=== PATIENT | female | born 1955 | race Caucasian/White ===

== ENCOUNTER 2022-01-22 23:07 | Emergency (ER) | payer MEDICARE, OTHER, SELFPAY ==
[2022-01-22 23:08] VITALS: BP 160/90; PULSE 105; RESP 18; TEMP 36.6; O2SAT 99; BMI 22.2
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
--- NOTE | 2022-01-22 23:48 | CT_ITS ---
INDICATION: injury EXAMINATION: CT CERVICAL SPINE - CT Spine Cervical W/O Contrast Injection TECHNIQUE: Helically acquired images were obtained of the cervical spine. 2D reformatted images were reviewed. A radiation dose optimization technique was used for this scan. IV Contrast dosage and agent: None. COMPARISON: None. FINDINGS: VERTEBRAE: No fracture or acute compression deformity. No discrete lytic or blastic abnormality. Straightening of the normal cervical lordosis. Normal craniocervical junction and cervicothoracic junction. DISCS and SPINAL CANAL: Mid cervical disc height loss and small posterior disc osteophyte complex C4-C5 and C5-C6 with mild spinal canal stenosis and mild right greater than left neural foraminal narrowing. No critical stenosis. NECK SOFT TISSUES: No prevertebral soft tissue swelling. There is no cervical adenopathy. LUNG APICES: Clear. CT/Spine Cervical without Contras IMPRESSION: No evidence of acute cervical spinal fracture or spondylolisthesis. Mild mid cervical spondylosis. Electronically Signed: Tyron Zamora MD at 0:40 EST ,
--- NOTE | 2022-01-22 23:48 | CT_ITS ---
We are attempting to reach an attending provider to discuss findings. An addendum with communication details will be sent when the communication is complete. INDICATION: injury EXAMINATION: CT BRAIN - CT Head or Brain W/O Contrast Injection TECHNIQUE: Multiple axial images were obtained of the head without intravenous contrast. A radiation dose optimization technique was used for this scan. IV Contrast dosage and agent: None. COMPARISON: None FINDINGS: BRAIN PARENCHYMA: Trace subarachnoid hemorrhage versus parenchymal lesion along the left inferior parietal lobe, axial image 25 sagittal image 58 and left cerebellum sagittal image 43. No vasogenic edema. No evidence of intracranial mass or mass effect. Landry-white matter differentiation is preserved. Minimal carotid atherosclerosis. CSF SPACES: Cerebral volume appropriate for age. No hydrocephalus. Basal cisterns are patent. CALVARIUM, SKULL BASE, PARANASAL SINUSES AND MASTOID AIR CELLS:No acute osseous finding. Mild scattered paransal sinus mucoperisteal thickening. Mastoid air cells are clear. ORBITS: Both globes, extraocular muscles, optic nerves and retrobulbar fat appear unremarkable. ASPECTS Score for Acute Strokes: 10 CT/Brain/Head without Contrast IMPRESSION: Small foci of intracranial hemorrhage along the left inferior parietal lobe and left cerebellum, likely subarachnoid with small parenchymal contusion not excluded Electronically Signed: Tyron Zamora MD at 0:31 EST ,
--- NOTE | 2022-01-22 23:48 | CT_ITS ---
INDICATION: injury EXAMINATION: CT FACIAL BONES - CT Maxillofacial W/O Contrast Injection TECHNIQUE: Helically acquired images were obtained of the facial bones. A radiation dose optimization technique was used for this scan. IV Contrast dosage and agent: None. COMPARISON: CT head on same day. FINDINGS: SOFT TISSUES: No focal subcutaneous swelling. No discrete fluid collections. Small foci of hemorrhage likely subarachnoid along the left inferior parietal lobe and left cerebellum, better assessed on CT head. VISUALIZED PARANASAL SINUSES: Mild scattered mucoperiosteal thickening. Congenital osseous left nasal septal deviation. Paradoxical curvature of the anterior middle nasal turbinate. VISUALIZED MASTOID AIR CELLS: Clear. FACIAL BONES, MANDIBLE AND TMJs: No displaced facial bone fracture. No lytic or blastic abnormality. VISUALIZED DENTITION: No periodontal osseous erosion. ORBITAL CONTENTS: Both globes, extraocular muscles and retrobulbar fat appear unremarkable. CT/Sinus/Facial Bone IMPRESSION: Mild scattered sinus disease. No evidence of osseous injury. Electronically Signed: Tyron Zamora MD at 0:46 EST ,
[2022-01-23 01:15] LABS: Anion Gap 7 (5-15); BUN 15 mg/dL (7-18); BUN/Creat Ratio 21.8 RATIO (10-20); Calcium,Total 9.3 mg/dL (8.5-10.1); Chloride 107 mmol/L (98-107); Creatinine, Serum 0.69 mg/dL (0.55-1.02); EST Glomerular Filtration Rate 91 mL/min (>60); Est Glom Filt Rate - Afr Amer 110 mL/min (>60); Glucose 103 mg/dL (74-106); Sodium Level 138 mmol/L (136-145)
[2022-01-23 01:22] LABS: Absolute Neutrophil Count 9.6 X10^3/uL (2.0-7.7); Basophil# 0.07 X10^3/uL; Basophil% 0.6 % (0-1); Eosinophil# 0.06 X10^3/uL; Eosinophils% 0.5 % (0-5); Hematocrit 42.6 % (37-47); Hemoglobin 14.5 g/dL (12.0-15.0); Lymphocyte % 7.2 % (19-41); Mean Corpuscular Hgb 30.4 pg (27.0-32.0); Mean Corpuscular Volume 89.3 fL (81-99); Mean Platelet Vol. 10.3 fl (6.2-12.0); Monocyte# 0.41 X10^3/uL; Monocyte% 3.7 % (0-10); NRBC Flagged by Analyzer 0 % (0-5); Neutrophil # 9.55 X10^3/uL (2.7-7.7); Neutrophil % 85.8 % (47-70); Platelet Count 300 K/mm3 (150-450); RBC Distribution Width CV 12.2 % (11.6-14.6); RBC Distribution Width SD 40.1 fl (35.1-43.9); Red Blood Count 4.77 M/mm3 (4.2-5.4); White Blood Count 11.1 K/mm3 (4.4-11.0)
--- NOTE | 2022-01-23 01:22 | ED.RN ---
PATIENT ACCEPTED FOR TRANSFER TO [facility] [id number]
[2022-01-23 01:24] LABS: Prothrombin Time (Protime)PT. 13.3 SECONDS (11.7-14.9)
[2022-01-23 01:25] LABS: Partial Thromboplast Time 29.9 Seconds (24.1-36.2)
[2022-01-23 01:32] VITALS: BP 151/90; PULSE 100; RESP 16; O2SAT 97
--- NOTE | 2022-01-23 01:41 | NURSING ---
due to pt blood pressure recheck 150/90 Doctor gave verbal order for 10mg trandate IV instead of full 20mg originally ordered.
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
[2022-01-23] MEDS: Labetalol (Prefilled) 20 MG/4 ML IV (02:04)
--- NOTE | 2022-01-23 02:05 | NURSING ---
Verbal order from Doctor to give other 10mg IV Trandate.
[2022-01-23 02:06] VITALS: BP 147/87; PULSE 93; RESP 16; O2SAT 98
[2022-01-23 02:26] VITALS: BP 143/80; PULSE 99; RESP 19; O2SAT 96
== END 2022-01-23 02:51 | disposition short-term general hospital (02) ==
PROVIDERS: Emergency Provider Emergency Medicine; Visit Provider Emergency Medicine
DX: S06.37AA Contusion, laceration, and hemorrhage of cerebellum with loss of consciousness status unknown, initial encounter (principal); F10.129 Alcohol abuse with intoxication, unspecified; Z85.3 Personal history of malignant neoplasm of breast; W19.XXXA Unspecified fall, initial encounter; F41.9 Anxiety disorder, unspecified
CPT/HCPCS: 70450; 70486; 72125; 80048; 82077; 85025; 85610; 85730; 96374; 99285; A4216

== ENCOUNTER → 2022-07-20 | Outpatient (CLI) | payer MEDICARE, OTHER, SELFPAY ==
--- NOTE | 2022-07-20 14:01 | RAD_ITS ---
INDICATION: INJURY fell several days ago, pain mid to proximal forearm EXAMINATION/TECHNIQUE: X-RAY - LEFT XR Elbow Min 3 Views COMPARISON: None. FINDINGS: BONES: No fracture demonstrated. JOINTS: No dislocation. SOFT TISSUES: Unremarkable. RAD/Elbow min 3 Views IMPRESSION: No evidence of fracture. Electronically Signed: Ermelinda Majano MD at 23:23 EDT ,
--- NOTE | 2022-07-20 14:01 | RAD_ITS ---
EXAM: XR LEFT FOREARM, 2 VIEWS CLINICAL INDICATION: Fall on left arm TECHNIQUE: Frontal and lateral views of the left forearm. COMPARISON: No relevant prior studies available. FINDINGS: BONES/JOINTS: Unremarkable. No acute fracture. No dislocation. SOFT TISSUES: Mild dorsal soft tissue swelling at the level of the proximal-mid forearm. No underlying fracture. Wrist and elbow appear unremarkable on the views provided. RAD/Forearm 2 Views IMPRESSION: Mild soft tissue swelling. Electronically Signed: Indy Esparza MD at 8:16 EDT ,
== END | disposition home or self-care (01) ==
LOC: MTRAD 14:00
PROVIDERS: PCP Family Medicine; Referring Provider Family Medicine; Visit Provider Family Medicine
DX: S59.902A Unspecified injury of left elbow, initial encounter (principal); M79.632 Pain in left forearm
CPT/HCPCS: 73080; 73090

== ENCOUNTER → 2022-12-27 | Outpatient (CLI) | payer MEDICARE, OTHER, SELFPAY ==
[2022-12-27 15:42] LABS: ALB/GLOB Ratio 1.1 RATIO (0.9-2.4); AST(SGOT) 21 U/L (15-37); Alanine Aminotransfer ALT/SGPT 18 U/L (13-56); Albumin, Serum 3.7 g/dL (3.2-5.0); Alkaline Phosphatase 68 U/L (45-117); Anion Gap 6 (5-15); BUN 16 mg/dL (7-18); BUN/Creat Ratio 21.4 RATIO (10-20); Calcium,Total 8.9 mg/dL (8.5-10.1); Chloride 107 mmol/L (98-107); Cholesterol 186 mg/dL (200); Creatinine, Serum 0.75 mg/dL (0.55-1.02); EST Glomerular Filtration Rate 82 mL/min (>60); Est Glom Filt Rate - Afr Amer 100 mL/min (>60); Globulin 3.5 g/dL (2.2-4.2); Glucose 87 mg/dL (74-106); High Density Lipoprotein 55 mg/dL; Potassium 3.8 mmol/L (3.5-5.1); Protein, Total 7.2 g/dL (6.4-8.2); Sodium Level 140 mmol/L (136-145); Thyroid Stim Hormone (TSH) 1.62 uIU/mL (0.358-3.74); Triglycerides 75 mg/dL; Very Low Density Lipoprotein 15 mg/dL (5-40)
== END | disposition home or self-care (01) ==
PROVIDERS: PCP Family Medicine; Referring Provider Family Medicine; Visit Provider Family Medicine
DX: Z00.00 Encounter for general adult medical examination without abnormal findings (principal); Z13.220 Encounter for screening for lipoid disorders; Z85.3 Personal history of malignant neoplasm of breast; Z80.8 Family history of malignant neoplasm of other organs or systems
CPT/HCPCS: 36415; 80053; 80061; 84443

== ENCOUNTER → 2024-01-30 | Outpatient (CLI) | payer MEDICARE, OTHER, SELFPAY ==
[2024-01-30 17:53] LABS: Absolute Lymphocyte Count 1.27 X10^3/uL (0.83-4.51); Absolute Neutrophil Count 4.5 X10^3/uL (2.0-7.7); Basophil# 0.06 X10^3/uL; Basophil% 0.9 % (0-1); Eosinophils% 3.1 % (0-5); Hematocrit 41.2 % (37-47); Hemoglobin 13.6 g/dL (12.0-15.0); Lymphocyte # 1.27 X10^3/ul (0.83-4.51); Mean Corpuscular Hgb 29.8 pg (27.0-32.0); Mean Corpuscular Volume 90.4 fL (81-99); Mean Platelet Vol. 10.8 fl (6.2-12.0); Monocyte# 0.29 X10^3/uL; Monocyte% 4.6 % (0-10); NRBC Flagged by Analyzer 0 % (0-5); Neutrophil # 4.53 X10^3/uL (2.7-7.7); Neutrophil % 71.2 % (47-70); Platelet Count 274 K/mm3 (150-450); RBC Distribution Width CV 12.6 % (11.6-14.6); RBC Distribution Width SD 41.1 fl (35.1-43.9); Red Blood Count 4.56 M/mm3 (4.2-5.4); White Blood Count 6.4 K/mm3 (4.4-11.0)
[2024-01-30 18:28] LABS: ALB/GLOB Ratio 1.1 RATIO (0.9-2.4); AST(SGOT) 13 U/L (15-37); Alanine Aminotransfer ALT/SGPT 18 U/L (13-56); Albumin, Serum 3.9 g/dL (3.2-5.0); Alkaline Phosphatase 72 U/L (45-117); Anion Gap 5 (5-15); BUN 17 mg/dL (7-18); BUN/Creat Ratio 23.5 RATIO (10-20); Calcium,Total 9.3 mg/dL (8.5-10.1); Chloride 107 mmol/L (98-107); Creatinine, Serum 0.72 mg/dL (0.55-1.02); EST Glomerular Filtration Rate 85 mL/min (>60); Est Glom Filt Rate - Afr Amer 103 mL/min (>60); Globulin 3.5 g/dL (2.2-4.2); Glucose 93 mg/dL (74-106); Potassium 3.7 mmol/L (3.5-5.1); Protein, Total 7.4 g/dL (6.4-8.2); Sodium Level 140 mmol/L (136-145)
[2024-02-01 00:58] LABS: Vitamin D,25 Hydroxy 30.4 ng/mL
== END | disposition home or self-care (01) ==
LOC: MFPLAB 16:38
PROVIDERS: PCP Family Medicine; Referring Provider Family Medicine; Visit Provider Family Medicine
DX: R53.83 Other fatigue (principal)
CPT/HCPCS: 36415; 80053; 82306; 84443; 85025

== ENCOUNTER 2024-03-12 13:28 | Outpatient (CLI) | payer MEDICARE, OTHER, SELFPAY ==
--- NOTE | 2024-03-12 13:34 | CT_ITS ---
EXAM: CT coronary calcium scoring. CLINICAL HISTORY: Hypertension. COMPARISON: None. TECHNIQUE: CT coronary calcium scoring. FINDINGS: Bilateral breast prostheses are seen, with chronic appearing rupture of the left prosthesis. Limited imaging of the lungs shows no acute process. CALCIUM SCORING RESULTS (Volume / Agatston): LEFT MAIN: 0 / 0 RCA: 0 / 0 LAD: 49.44 / 57.27 CIRCUMFLEX: 0 / 0 PDA: 0 / 0 Total: 49.44 / 57.27 Patient Age: 68 Percentile: 57 CA Threshold: 130HU Reference: Jersey Pathak al., [facility], 2001 ([facility], [place], [id number] patients) CT/Limited Chest CT Cardiac Only IMPRESSION: Coronary artery calcium score of 57.27. Age adjusted percentile of 57%. Reading Location: [id number]
--- NOTE | 2024-03-12 16:39 | CA.SCORE ---
Calcium Scoring Date of Study:: 03/12/24 Coronary Calcium Scoring: High-resolution Computed Tomographic imaging of the chest was performed on [03/12/23 ], with particular attention paid to the coronary arteries. Images from the examination were analyzed for the presence and extent of coronary artery calcification , using coronary calcium quantification software. The patient tolerated the procedure well and there were no complications. The results of the coronary calcification analysis are provided below. Findings Coronary Artery Left Main (LM): 0 Left Anterior Descending (LAD): 62 Left Circumflex (LCX): 0 Right Coronary Artery (RCA): 0 Total Agatston Score: 62 Percentile Rankin to 75% Calcium Scoring Interpretation: Different methods to categorize the overall amount of coronary plaque. Overall amount CAC SIS Visual of coronary plaque P1 Mild -100 <2 1-2 vessels with mild amount of plaque P2 Moderate 101-300 3-4 1-2 vessels with moderate amount, 3 vessels with mild amount of plaque P3 Severe 301-999 5-7 3 vessels with moderate amount, 1 vessel with severe amount of plaque P4 Extensive >1000 >8 2-3 vessels with severe amount of plaque Calcium Score: Mild: 1-2 vessels w/mild amount of plaque Conclusion: Mild single-vessel atherosclerotic plaquing only noted.
== END 2024-03-12 23:59 | disposition home or self-care (01) ==
PROVIDERS: PCP Family Medicine; Referring Provider Family Medicine; Visit Provider Family Medicine
DX: Z00.00 Encounter for general adult medical examination without abnormal findings (principal)
CPT/HCPCS: 75571; 76380

== ENCOUNTER → 2024-03-18 | Outpatient (CLI) | payer MEDICARE, OTHER, SELFPAY ==
[2024-03-22 11:08] LABS: HPV APTIMA, High Risk Negative (Negative)
== END | disposition home or self-care (01) ==
LOC: LABSPEC 15:01
PROVIDERS: PCP Family Medicine; Referring Provider Obstetrics & Gynecology; Visit Provider Obstetrics & Gynecology
DX: Z12.4 Encounter for screening for malignant neoplasm of cervix (principal)
CPT/HCPCS: 87624; 88175; G0145

== ENCOUNTER → 2024-03-25 | Outpatient (CLI) | payer MEDICARE, OTHER, SELFPAY ==
--- NOTE | 2024-03-25 14:17 | US_ITS ---
PROCEDURE: PELVIC W/ TRANSVAGINAL REASON FOR EXAM: Uterine prolapse. TECHNIQUE: Transabdominal and transvaginal pelvic ultrasound COMPARISON: None. FINDINGS: Measurements: Uterus: 8.3 cm x 5.3 cm x 2.9 cm. Endometrial Thickness: 9 mm. This is thickened. Right Ovary: Nonvisualized. Left Ovary: Nonvisualized. TRANSABDOMINAL: Uterus: Normal size, myometrial echotexture, and contour. Endometrium: Endometrium is thickened at 9 mm. No large pelvic mass identified. Transvaginal sonography was performed to better visualize the endometrium and to look for the nonvisualized ovary or ovaries. TRANSVAGINAL: Uterus: Anteverted. Normal contour and myometrial echotexture. Endometrium: Endometrial thickening at 9 mm. Cul-de-sac: No free intraperitoneal fluid identified. No tenderness. US/Pelvic w/ Transvaginal IMPRESSION: Endometrium is thickened. Reading Location: [id number]
== END | disposition home or self-care (01) ==
LOC: US 14:15
PROVIDERS: PCP Family Medicine; Referring Provider Obstetrics & Gynecology; Visit Provider Obstetrics & Gynecology
DX: N81.4 Uterovaginal prolapse, unspecified (principal)
CPT/HCPCS: 76830; 76856

== ENCOUNTER 2024-08-07 15:50 | Outpatient (CLI) | payer MEDICARE, OTHER, SELFPAY ==
[2024-08-09 16:08] LABS: Lyme Scn Total Ab w/Rflx Negative (Negative)
== END 2024-08-07 23:59 | disposition home or self-care (01) ==
LOC: MFPLAB 15:53
PROVIDERS: PCP Family Medicine; Referring Provider Family Medicine; Visit Provider Family Medicine
DX: Z00.00 Encounter for general adult medical examination without abnormal findings (principal); W57.XXXA Bitten or stung by nonvenomous insect and other nonvenomous arthropods, initial encounter
CPT/HCPCS: 36415; 86618

== ENCOUNTER 2025-02-10 09:49 | Outpatient (CLI) | payer MEDICARE, OTHER, SELFPAY ==
--- OUTSIDE RECORDS SUMMARY | 2025-02-10 10:36 | XMS RPT_ITS | CCD ---
Author Organization [facility] Inform ion Partnership [facility] Care Team Providers Care Director Of Land Acquisition Name Role Phone LETTY, DR HERO Gentile Admitting Unavaila ble LETTY, DR HERO Gentile Primary Care Unavaila ble LETTY, DR HERO Gentile Attending Unavaila ble LETTY, DR HERO Gentile Primary Care Unavaila ble LETTY, DR HERO Gentile Attending Unavaila ble LETTY, DR HERO Gentile Admitting Unavaila ble LETTY, DR HERO Gentile Primary Care Unavaila ble LETTY, DR HERO Gentile Attending Unavaila ble LETTY, DR HERO Gentile Admitting Unavaila ble LETTY, DR HERO Gentile Primary Care Unavaila ble LETTY, DR HERO Gentile Attending Unavaila ble LETTY, DR HERO Gentile Admitting Unavaila ble BLAKE DOMINGUEZ DO Primary Care Physician [phone] Blake Dominguez DO Primary Care Provider [phone] JAZMIN TUTTLE Attending Unavailable BLAKE DOMINGUEZ Primary Care Unavailable SAMANTA, JAZMIN Referring Unavailable BLAKE DOMINGUEZ Primary Care Unavailable JAZMIN TUTTLE Attending Unavailable JAZMIN TUTTLE Referring Unavailable BLAKE DOMINGUEZ Primary Care Unavailable BLAKE DOMINGUEZ Primary Care Unavailable BLAKE DOMINGUEZ Primary Care Unavailable HERO BUSCH Admitting Unavailable HERO BUSCH Attending Unavailable CARLI PEREZ Consulting Unavailable SHAWN SUTTON Attending Unavailable BLAKE DOMINGUEZ Primary Care Unavailable CARLI PEREZ Referring Unavailable BLAKE DOMINGUEZ Primary Care Unavailable BLAKE DOMINGUEZ DO Primary Care Physician NICOLE QUINN MD Attending Unavailable BLAKE DOMINGUEZ DO Primary Care Unavailable Amrik Mccoy MD Primary Care Provider Amrik Mccoy MD Attending Provider [phone] Amrik Mccoy MD Referring Provider Chiara Mensah, Marion Referring Unavailabl e Darius, Chalon Primary Care Unavailable Vande Velde, Marion Attending Unavailabl e Darius, Chalon Primary Care Unavailable Darius, Amrik Attending Unavailable Darius, Chalon Referring Unavailable Darius, Chalon Referring Unavailable Vande Velde, Marion Attending Unavailabl e Darius, Chalon Primary Care Unavailable Darius, Chalon Referring Unavailable Alecia, Zechariah Attending Unavailable Darius, Chalon Primary Care Unavailable Darius, Chalon Consulting Unavailable Darius, Chalon Referring Unavailable Darius, Chalon Primary Care Unavailable Darius, Yulianaon Attending Unavailable Darius, Chalon Primary Care Unavailable Barkman, Rosalinda Attending Unavailable Darius, Chalon Referring Unavailable Darius, Chalon Referring Unavailable Darius, Chalon Primary Care Unavailable Darius, Yulianaon Attending Unavailable Vande Velde, Marion Attending Unavailabl e Vande Velde, Marion Referring Unavailabl e Darius, Chalon Primary Care Unavailable Allergies Allergy Classification Reported Allergen(s) Allergy Type Date of Onset Reaction(s) Facility (9 sources) Seasonal allergy; Translations: [SEASONAL ALLERGIES] Allergy to substance 4 Other: See Comments [facility] Medications Current Medications Medication Drug Class(es) Dates Sig (Normalized) Sig (Original) cholecalciferol 0.125 mg oral capsule (9 sources) Vitamin D Start: 03-12-2024 take 1 capsule by mouth once daily Cholecalciferol (Vitamin D3) 125 mcg (5,000 unit) capsule Active 125 ug PO daily March 12, 2024 1:00am Start: 11-27-2013 take 1 capsule by [facility] once daily Cholecalciferol, Vitamin D3, 1,000 unit cap Take 1 capsule by mouth once daily. 0 11/27/2013 Active Comment on above: Take 1 capsule by [facility] once daily. Co Q-10 100 mg oral capsule (1 source) Start: 03-06-2020 Co Q-10 100 mg oral capsule Dose : 100 mg = 1 cap(s), Oral, Daily, 0 Refill(s) Start Date: 03/06/20 Status: Ordered Horse Tail (1 source) Start: 08-30-2022 Horse Tail Horse Tail, 0 Refill(s), 61.7 Start Date: 08/30/22 Status: Ordered iodine 0.15 mg oral tablet (1 source) Start: 03-12-2024 Iodine (Kelp (Iodine)) 150 mcg tablet Active ug PO March 12, 2024 1:00am Kelp (1 source) Start: 08-30-2022 Kelp Kelp, 0 Refill(s), 61.7 Start Date: 08/30/22 Status: Ordered Magnesium (9 sources) Start: 03-06-2020 Magnesium 250 mg tablet Dose : 500 mg = 2 tab(s), Oral, qDay, 0 Refill(s) Start Date: 03/06/20 Status: Ordered Start: 01-19-2016 take 1 tablet by [facility] once daily Magnesium 250 mg tab Take 1 tablet by mouth once daily. 0 01/19/2016 Active Comment on above: Take 1 tablet by bryon [facility] once daily. magnesium oxide 250 mg oral tablet (1 source) Start: 03-06-2020 Magnesium 250 mg tablet Dose : 500 mg = 2 tab(s), Oral, qDay, 0 Refill(s) Start Date: 03/06/20 Status: Ordered Magnesium Oxide 300 mg magnesium tablet (1 source) Start: 03-12-2024 take 1 tablet by mouth once Magnesium Oxide 300 mg magnesium tablet Active 300 mg PO ONCE March 12, 2024 1:00am Super B Complex (1 source) Start: 03-06-2020 Super B Complex Oral, qDay, 0 Refill(s) Start Date: 03/06/20 Status: Ordered ubidecarenone 100 mg oral capsule (1 source) Start: 03-06-2020 Co Q-10 100 mg oral capsule Dose : 100 mg = 1 cap(s), Oral, Daily, 0 Refill(s) Start Date: 03/06/20 Status: Ordered ubiquinol 100 mg oral capsule (1 source) Start: 03-12-2024 take 1 capsule by mouth twice daily Coq10 (Ubiquinol) (Qunol Shad Coq10) 100 mg capsule Active 100 mg PO TWICE A DAY March 12, 2024 1:00am Vitamin D3 (2 sources) Start: 03-06-2020 Vitamin D3 qDay, 0 Refill(s) Start Date: 03/06/20 Status: Ordered vitamin K2 (2 sources) Start: 03-06-2020 take 100 ug by mouth once daily Vitamin K2 100 mcg, Oral, qDay, 0 Refill(s) Start Date: 03/06/20 Status: Ordered Vitamin K2 45 mcg capsule (1 source) Start: 03-12-2024 Vitamin K2 45 mcg capsule Active 45 ug PO daily March 12, 2024 1:00am Completed/Discontinued Medications Medication Drug Class(es) Dates Sig (Normalized) Sig (Original) levETIRAcetam 500 mg oral tablet (2 sources) Start: 01-23-2022 End: 02-09-2022 take 1 tablet by mouth twice daily levETIRAcetam (KEPPRA) 500 mg tablet Take 1 tablet by mouth twice daily for 13 doses. 13 tablet 0 01/23/2022 02/09/2022 Discontinued (Course of therapy completed) Comment on above: Take 1 tablet by bryon [facility] twice daily for 13 doses. vitamin k 0.1 mg oral tablet (8 sources) Start: 12-16-2014 take 1 tablet by mouth once daily PHYTONADIONE (VITAMIN K) 100 mcg tablet Take 100 mcg by mouth once daily. 0 12/16/2014 Active Comment on above: Take 100 mcg by mout h once daily. Problems Active Problems Problem Classification Problem Date Documented Date Episodic/Chronic Acute cerebrovascular disease (3 sources) Intracranial hemorrhage; Translations: [Nontraumatic intracranial hemorrhage, unspecified] Onset: 2 01-31-2022 Chronic Alcohol-related disorders (10 sources) Alcohol intoxication; Translations: [Alcohol use, unspecified with intoxication, unspecified] Onset: 2 01-23-2022 Episodic Anxiety disorders (8 sources) Anxiety; Translations: [Anxiety disorder, unspecified] Onset: 2 10-04-2011 Chronic Cancer of breast (10 sources) Malignant neoplasm of female breast; Translations: [Malignant neoplasm of unspecified site of unspecified female breast] Onset: 5 03-05-2020 Chronic Cardiac and circulatory congenital anomalies (2 sources) Congenital anomaly of cerebrovascular system; Translations: [Other malformations of cerebral vessels] Onset: 3 Chronic E Codes: Fall (8 sources) Fall; Translations: [Unspecified fall, initial encounter] Onset: 2 01-23-2022 Episodic Essential hypertension (8 sources) Benign essential hypertension; Translations: [Essential (primary) hypertension] 12-01-2009 Chronic Genitourinary symptoms and ill-defined conditions (1 source) Vaginal pessary in situ; Translations: [Presence of urogenital implants] 04-09-2024 Chronic Intracranial injury (11 sources) Subarachnoid hemorrhage due to traumatic injury; Translations: [Traumatic subarachnoid hemorrhage with unknown loss of consciousness status] Onset: 2 01-23-2022 Episodic Nutritional deficiencies (8 sources) Vitamin D deficiency; Translations: [Vitamin D deficiency, unspecified] Onset: 1 12-13-2010 Chronic Osteoporosis (18 sources) Osteoporosis; Translations: [Postmenopausal osteoporosis] Onset: 4 03-05-2020 Chronic Other and unspecified benign neoplasm (1 source) Hemangioma unspecified site; Translations: [Cavernous angioma] Onset: 3 Episodic Other bone disease and musculoskeletal deformities (8 sources) Disorder of skeletal system; Translations: [Disorder of bone, unspecified] 12-01-2009 Episodic Other circulatory disease (2 sources) Elevated blood-pressure reading without diagnosis of hypertension 12-09-2020 Episodic Other endocrine disorders (8 sources) Hyperparathyroidism due to vitamin D deficiency; Translations: [Secondary hyperparathyroidism, not elsewhere classified] Onset: 1 12-13-2010 Chronic Other injuries and conditions due to external causes (2 sources) Closed injury of head; Translations: [Unspecified injury of head, initial encounter] 01-31-2022 Episodic Other injuries and conditions due to external causes (2 sources) Injury of head; Translations: [Unspecified injury of head, subsequent encounter] Episodic Other injuries and conditions due to external causes (1 source) Unspecified injury of head, subsequent encounter; Translations: [Injury of head, subsequent encounter] Onset: 2 Episodic Other nervous system disorders (1 source) Mass lesion of brain; Translations: [Other specified disorders of brain] Chronic Other nervous system disorders (1 source) Other specified disorders of brain; Translations: [Brain mass] Onset: 3 Chronic Other screening for suspected conditions (not mental disorders or infectious disease) (1 source) Endometrium thickened; Translations: [Abnormal findings on diagnostic imaging of other specified body structures] 04-09-2024 Chronic Prolapse of female genital organs (2 sources) Prolapse of female genital organs; Translations: [Female genital prolapse, unspecified] Onset: 5 03-18-2024 Chronic Residual codes; unclassified (2 sources) Needs influenza immunization 01-07-2020 Episodic Residual codes; unclassified (2 sources) Requires vaccination 12-04-2018 Episodic Unclassified (2 sources) Cancer cervix screening status 01-07-2020 Unclassified (12 sources) Patient encounter status 01-07-2020 Unclassified (1 source) Traumatic subarachnoid hemorrhage with unknown loss of consciousness status, subsequent encounter; Translations: [Traumatic subarachnoid hemorrhage with unknown loss of consciousness status, subsequent encounter] Onset: 2 Past or Other Problems Problem Classification Problem Date Documented Da te Episodic/Chronic Allergic reactions (16 sources) Contact dermatitis; Translations: [Unspecified contact dermatitis, unspecified cause] Onset: 09-04-2008 09-04-2008 Episodic Cancer of breast (9 sources) History of malignant neoplasm of breast; Translations: [Personal history of malignant neoplasm of breast] Onset: 12-16-2014 02-08-2021 Episodic Cancer; other and unspecified primary (8 sources) H/O: neoplasm; Translations: [Personal history of other benign neoplasm] Onset: 11-27-2013 11-27-2013 Episodic Genitourinary symptoms and ill-defined conditions (16 sources) Disorder of urinary tract; Translations: [Disorder of urinary system, unspecified] Onset: 09-29-2008 09-29-2008 Episodic Immunizations and screening for infectious disease (1 source) Encounter for observation for suspected exposure to other biological agents ruled out; Translations: [Encounter for observation for suspected exposure to other biological agents ruled out] Onset: 11-13-2019 Episodic Malaise and fatigue (1 source) Other fatigue; Translations: [Other fatigue] Onset: 02-27-2024 Episodic Other and unspecified benign neoplasm (8 sources) Benign neoplasm of skin of lower limb; Translations: [Other benign neoplasm of skin of unspecified lower limb, including hip] Onset: 09-04-2008 09-04-2008 Episodic Other and unspecified benign neoplasm (8 sources) Benign neoplasm of skin of trunk; Translations: [Other benign neoplasm of skin of trunk] Onset: 09-04-2008 09-04-2008 Episodic Other connective tissue disease (8 sources) Plantar fascial fibromatosis; Translations: [Plantar fascial fibromatosis] Onset: 01-30-2009 01-30-2009 Episodic Other lower respiratory disease (2 sources) Cough; Translations: [Cough] Onset: 11-13-2019 Episodic Other screening for suspected conditions (not mental disorders or infectious disease) (2 sources) Encounter for screening for malignant neoplasm of cervix; Translations: [Encounter for screening mammogram for malignant neoplasm of breast] Onset: 03-18-2024 Episodic Other skin disorders (8 sources) Disorder of pigmentation; Translations: [Disorder of pigmentation, unspecified] Onset: 09-04-2008 09-04-2008 Episodic Other skin disorders (8 sources) Disorder of sebaceous gland; Translations: [Other specified follicular disorders] Onset: 09-04-2008 09-04-2008 Episodic Other skin disorders (8 sources) Disorder of skin pigmentation; Translations: [Disorder of pigmentation, unspecified] Onset: 09-04-2008 09-04-2008 Episodic Other skin disorders (8 sources) Seborrheic keratosis; Translations: [Other seborrheic keratosis] Onset: 09-04-2008 09-04-2008 Episodic Results Test Name Value Interpretation Reference Range Facility Lyme Screen W/Reflex WBon LYME SCREEN Ab Negative Normal Negative [facility] Comment on above: Result Comment: Lyme antibodies not detected. Reflex testing is not indicated. No laboratory evidence of infection with B. burgdorferi (Lyme disease). Negative results may occur in patients recently infected (less than or equal to 14 days) with B. burgdorferi. If recent infection is suspected, repeat testing on a new sample collected in 7 to 14 days is recommended. Performed at: - [facility] [id number] Rehabilitation Services Counselor: Logan Maldonado PhD, Phone: [phone] Performed By: #### L 089.2804, L100.3410, L500.9960, L506.1000 #### [facility] [place] [place], [address] [employer]ic Helper Office Visit Reporton 04-03-2024 Radio Mechanic Helper Office Visit Report [facility] [address], [address] [place] [address] OFFICE VISIT Date of Service: 04/03/24 MR#: [id number] Acct: [id number] Name: FER KAUR Rep #: [id number] : 1955 Provider: EPIFANIO Hong Age/Sex: 68/F [place] [facility] Status: Signed Intake Vital Signs 03/18/24 11:02 04/03/24 14:45 Height 5 ft 8 in 5 ft 8 in Weight: 140 lb BMI 21.2 BP 170/79 H Intake Visit Reasons: PESSARY FITTING Central Office Repairer Required: No Is patient in pain?: No Allergies No Known Allergies Allergy (Verified 04/03/24 14:45) Medications ???Medication ???Instructions ???Recorded ???Confirmed ???Type cholecalciferol (vitamin D3) 125 125 mcg PO QDAY 03/12/24 04/03/24 History mcg (5,000 unit) capsule coQ10 (ubiquinol) 100 mg capsule 100 mg PO BID 03/12/24 04/03/24 Hi story (Qunol Shad CoQ10) iodine 150 mcg tablet (Kelp mcg PO 03/12/24 04/03/24 History (iodine)) magnesium oxide 300 mg PO ONCE 03/12/24 04/03/24 H istory vitamin K2 45 mcg capsule 45 mcg PO QDAY 03/12/24 04/03/24 H istory PFSH Medical History Parathyroid disorder Hypertension Breast cancer Surgical History H/O parathyroidectomy Hx of appendectomy Hx of left mastectomy Family History Mother Hypertension Father Hypertension Atrophic emphysema Grandfather Cancer Social History Smoking Status: Never smoker alcohol intake: former substance use type: does not use caffeine: Yes what type of physical activity do you participate in: none seatbelt use: always do you feel safe at home: Yes additional social history: HPI PESSARY FITTING Details: FER KAUR is a 68 year old who presents for pessary fitting--visit not complete. See A/P History 4 Elective abortions Hx Para 3 Spontaneous abortions Hx # Term Pregnancies Ectopic pregnancies Hx # Pregnancies Multiple births # of living children Past Pregnancies Del. Date Name GA/Weeks Outcome Route Bth Weight Gen Labor Lgth Anesthesia Del Locatn Provider FOB Unknown Yovani Unknown Rayne Unknown Marty Coding Level of Care Code No Charge Diagnoses Prolapse of female pelvic organs N81.9 Assessment and Plan Assessment and Plan (1) Prolapse of female pelvic organs: Status: Acute Plan: ultrasound reviewed--will await to pessary fitting until review with ordering physician. No exam completed. 04/03/24 1510 Date Rosalinda Cantrell NP-Lida Villaigner Signature: Date (if applicable) CC: Normal [facility] Pelvic w/ Transvaginalon Pelvic w/ Transvaginal [facility] [address] [place] [id number] Pelvic w/ Transvaginal MR#: [id number] Acct: [id number] Name: FER KAUR Rep #: [id number] : 1955 F 68 From: Ilia guerrero MD PCP: Dr. Amrik Mccoy MD Status: REG CLI Study: Pelvic w/ Transvaginal Date of Exam: 03/25/24 Exam# [id number] Ordering Dr: Marion Guillaume DO PROCEDURE: PELVIC W/ TRANSVAGINAL REASON FOR EXAM: Uterine prolapse. TECHNIQUE: Transabdominal and transvaginal pelvic ultrasound COMPARISON: None. FINDINGS: Measurements: Uterus: 8.3 cm x 5.3 cm x 2.9 cm. Endometrial Thickness: 9 mm. This is thickened. Right Ovary: Nonvisualized. Left Ovary: Nonvisualized. TRANSABDOMINAL: Uterus: Normal size, myometrial echotexture, and contour. Endometrium: Endometrium is thickened at 9 mm. No large pelvic mass identified. Transvaginal sonography was performed to better visualize the endometrium and to look for the nonvisualized ovary or ovaries. TRANSVAGINAL: Uterus: Anteverted. Normal contour and myometrial echotexture. Endometrium: Endometrial thickening at 9 mm. Cul-de-sac: No free intraperitoneal fluid identified. No tenderness. US/Pelvic w/ Transvaginal IMPRESSION: Endometrium is thickened. Reading Location: [id number] CC: Dr. Amrik Mccoy MD; Dr. Marion Guillaume DO Neurophysiologist: Signed Normal [facility] PAP IG HPV APTIMA 16/18,45on 03-22-2024 ADEQ Comment Normal . [facility] Comment on above: Order Comment: Speci men Comment: [id number] Specimen Comment: Source.............Cervix Specimen Comment: No. of containers..01 ThinPrep Vial Result Comment: Sati sfactory for evaluation. Endocervical and/or squamous metaplastic cells (endocervical component) are present. Performed By: #### L 7400.0280 #### [facility] [address] [place], [address] COMM . Normal . [facility] Comment on above: Order Comment: Speci men Comment: [id number] Specimen Comment: Source.............Cervix Specimen Comment: No. of containers..01 ThinPrep Vial Performed By: #### L 7400.0280 #### [facility] [address] [place], [place], [id number] COMMENT Comment Normal . [facility] Comment on above: Order Comment: Speci men Comment: [id number] Specimen Comment: Source.............Cervix Specimen Comment: No. of containers..01 ThinPrep Vial Result Comment: This liquid based ThinPrep(R) pap test was screened with the use of an image guided system. Performed By: #### L 7400.0280 #### [facility] [address] [place], [address] DIAG Comment Normal . [facility] Comment on above: Order Comment: Speci men Comment: [id number] Specimen Comment: Source.............Cervix Specimen Comment: No. of containers..01 ThinPrep Vial Result Comment: NEGA TIVE FOR INTRAEPITHELIAL LESION OR MALIGNANCY. Performed By: #### L 7400.0280 #### [facility] [address] [place], [address] HPV APTIMA, HR Negative Normal Negative [facility] Comment on above: Order Comment: Speci men Comment: [id number] Specimen Comment: Source.............Cervix Specimen Comment: No. of containers..01 ThinPrep Vial Result Comment: This nucleic acid amplification test detects fourteen high- risk HPV types (16,18,31,33,35,39,45,51,52,56,58,59,66,68) without differentiation. Performed By: #### L 7400.0280 #### [facility] [address] [place], [place], [address] HPV Karen Rfx Comment Normal . [facility] Comment on above: Order Comment: Speci men Comment: [id number] Specimen Comment: Source.............Cervix Specimen Comment: No. of containers..01 ThinPrep Vial Result Comment: Crit erilene not met, HPV Genotype not performed. Performed at: [address] [id number] Rehabilitation Services Counselor: Dee Dee Arana MD, Phone: [phone] Performed at: =[address] [place] [id number] Rehabilitation Services Counselor: Dee Dee Arana MD, Phone: [phone] Performed By: #### L 7400.0280 #### [facility] [address] [place], [place], [address] PAPSMR Comment Normal . [facility] Comment on above: Order Comment: Speci men Comment: [id number] Specimen Comment: Source.............Cervix Specimen Comment: No. of containers..01 ThinPrep Vial Result Comment: The Pap smear is a screening test designed to aid in the detection of premalignant and malignant conditions of the uterine cervix. It is not a diagnostic procedure and should not be used as the sole means of detecting cervical cancer. Both false-positive and false-negative reports do occur. Performed By: #### L 7400.0280 #### [facility] [address] [place], [place], [address] PERFORM Comment Normal . [facility] Comment on above: Order Comment: Speci men Comment: [id number] Specimen Comment: Source.............Cervix Specimen Comment: No. of containers..01 ThinPrep Vial Result Comment: Milly Zamorano Social Media Marketer (ASCP) Performed By: #### L 7400.0280 #### [facility] [address] [place], [address] Radio Mechanic Helper Office Visit Reporton 03-18-2024 Radio Mechanic Helper Office Visit Report [facility] [address], [address] [place] [address] OFFICE VISIT Date of Service: 03/18/24 MR#: [id number] Acct: [id number] Name: FER KAUR Rep #: [id number] : 1955 Provider: Dr. Marion Alvarado, Age/Sex: 68/F [place] [facility] Status: Signed Intake Vital Signs 01/22/22 23:08 03/18/24 11:02 03/18/24 11:02 Height 5 ft 8 in 5 ft 8 in 5 ft 8 in Weight: 142 lb BMI 21.6 BP 128/85 H Intake Visit Reasons: VAGINAL PROLAPSE ([place]) Central Office Repairer Required: No Is patient in pain?: No Allergies No Known Allergies Allergy (Verified 03/18/24 11:01) Medications ???Medication ???Instructions ???Recorded ???Confirmed ???Type cholecalciferol (vitamin D3) 125 125 mcg PO QDAY 03/12/24 03/18/24 History mcg (5,000 unit) capsule coQ10 (ubiquinol) 100 mg capsule 100 mg PO BID 03/12/24 03/18/24 Hi story (Qunol Shad CoQ10) iodine 150 mcg tablet (Kelp mcg PO 03/12/24 03/18/24 History (iodine)) magnesium oxide 300 mg PO ONCE 03/12/24 03/18/24 H istory vitamin K2 45 mcg capsule 45 mcg PO QDAY 03/12/24 03/18/24 H istory Post menopausal: Yes Patient : No : No PFSH Medical History Parathyroid disorder Hypertension Breast cancer Surgical History H/O parathyroidectomy Hx of appendectomy Hx of left mastectomy Family History Mother Hypertension Father Hypertension Atrophic emphysema Grandfather Cancer Social History (Updated 03/18/24 @ 11:25 by Jewell Hardin) Smoking Status: Never smoker alcohol intake: former substance use type: does not use caffeine: Yes what type of physical activity do you participate in: none seatbelt use: always do you feel safe at home: Yes additional social history: HPI VAGINAL PROLAPSE ([place]) Details: FER KAUR is a 68 year old who presents for discussion about vaginal prolapse. She states that she has canceled vacations to [place], [place], and [employer] because she does not want to slow others down with her prolapse problems. She denies leaking urine or having to stent the rectum to have a bowel movement. She states that 2 of her 3 vaginal deliveries were 9 and 10 pound babies. Her last pap was in 2019 and she states that all of her paps have been normal. She is no longer sexually active. History 4 Elective abortions Hx Para 3 Spontaneous abortions Hx # Term Pregnancies Ectopic pregnancies Hx # Pregnancies Multiple births # of living children Past Pregnancies Del. Date Name GA/Weeks Outcome Route Bth Weight Gen Labor Lgth Anesthesia Del Locatn Provider FOB Unknown Yovani Unknown Rayne Unknown Marty ROS Const ROS Unobtainable: All systems reviewed are unremarkable except as noted in H Resp Resp: Reports system reviewed and no additional complaints, except as documented; Denies cough GI GI: Reports as per HPI Psych Psych: Reports system reviewed and no additional complaints, except as documented Exam Const General: cooperative, healthy appearing, comfortable and no acute distress Resp Effort Inspection: normal respiratory effort GI Inspection: normal to inspection and non-distended Palpation: no hepatosplenomegaly Rectal Exam: visual inspection normal General: bimanual renal exam normal bilaterally External Female Exam: normal appearance of the urethra Urethra: normal appearance of the urethra Speculum Exam - Vagina: normal appearance of the vagina Speculum Exam - Cervix: normal appearance of the cervix Bimanual Exam- Adnexa, other: normal adnexae, normal rectovaginal exam, enterocele and other (The cervix is at the level of the introitus. (grade 3 prolpapse) ) Recto-Vaginal: normal rectovaginal exam Pelvic Support: enterocele Skin General: no rashes or lesions noted Psych Appearance: grossly normal Speech and Movement: speech and movement normal Coding Level of Care Code Off vis,new,level 4 Diagnoses Prolapse of female pelvic organs N81.9 Assessment and Plan Assessment and Plan (1) Prolapse of female pelvic organs: Status: Acute Plan: plan to start with a pap and pelvic ultrasound (done today) rto for pessary fitting. If pessary does not work out, will recommend vag hyst. Orders: Orders Pelvic w/ Transvaginal Today N81.4 - Uterovaginal prolapse, unspecified SCREEN MAMM (CAD) W/JAVIER UNI R Today Z12.31 - Encounter for screening mammogram for malignant neoplasm of breast, Z85.3 - Personal history of malignant neoplasm of breast 03/18/24 1234 Date ___ (more content not included)... Normal [facility] Coronary Angiography CTon Coronary Angiography CT [facility] Imaging Services [address] [place] [address] 03/12/24 1639 MR#: [id number] Acct: [id number] Name: FER KAUR Rep #: [id number] : 1955 68 From: Zechariah Alston MD PCP: Dr. Amrik Mccoy MD Status:REG CLI Y Location: CT Calcium Scoring Date of Study:: 03/12/24 Coronary Calcium Scoring: High-resolution Computed Tomographic imaging of the chest was performed on [03/12/23 ], with particular attention paid to the coronary arteries. Images from the examination were analyzed for the presence and extent of coronary artery calcification , using coronary calcium quantification software. The patient tolerated the procedure well and there were no complications. The results of the coronary calcification analysis are provided below. Findings Coronary Artery Left Main (LM): 0 Left Anterior Descending (LAD): 62 Left Circumflex (LCX): 0 Right Coronary Artery (RCA): 0 Total Agatston Score: 62 Percentile Rankin to 75% Calcium Scoring Interpretation: Different methods to categorize the overall amount of coronary plaque. Overall amount CAC SIS Visual of coronary plaque P1 Mild -100 <2 1-2 vessels with mild amount of plaque P2 Moderate 101-300 3-4 1-2 vessels with moderate amount, 3 vessels with mild amount of plaque P3 Severe 301-999 5-7 3 vessels with moderate amount, 1 vessel with severe amount of plaque P4 Extensive >1000 >8 2-3 vessels with severe amount of plaque Calcium Score: Mild: 1-2 vessels w/mild amount of plaque Conclusion: Mild single-vessel atherosclerotic plaquing only noted. 03/12/24 1640 Date Zechariah Alston MD Cosigner Signature (if applicable): Date CC: Dr. Amrik Mccoy MD; Dr. Zechariah Alston MD Signed Normal [facility] Limited Chest CT Cardiac Onl yon 03-12-[address] Cardiac Only [facility] Imaging Services [address] [place] [address] Cardiac Only MR#: [id number] Acct: [id number] Name: FER KAUR Rep #: [id number] : 1955 F 68 From: Christiano Lei PCP: Dr. Amrik Mccoy MD Status: REG CLI Study: Limited Chest CT Cardiac Only Date of Exam: Exam# [id number] Ordering Dr: Amrik Mccoy MD EXAM: CT coronary calcium scoring. CLINICAL HISTORY: Hypertension. COMPARISON: None. TECHNIQUE: CT coronary calcium scoring. FINDINGS: Bilateral breast prostheses are seen, with chronic appearing rupture of the left prosthesis. Limited imaging of the lungs shows no acute process. CALCIUM SCORING RESULTS (Volume / Agatston): LEFT MAIN: 0 / 0 RCA: 0 / 0 LAD: 49.44 / 57.27 CIRCUMFLEX: 0 / 0 PDA: 0 / 0 Total: 49.44 / 57.27 Patient Age: 68 Percentile: 57 CA Threshold: 130HU Reference: [place] Pathak al., [facility], 2001 ([place], 35,246 patients) CT/Limited Chest CT Cardiac Only IMPRESSION: Coronary artery calcium score of 57.27. Age adjusted percentile of 57%. Reading Location: [address] CC: Dr. Amrik Mccoy MD Neurophysiologist: Signed Normal [facility] Vitamin D,25 Hydroxyon 01-31 Vitamin D 25-OH 30.4 ng/mL Normal [facility] Comment on above: Result Comment: Liliya min D 25(OH) Status Range Deficiency <20 ng/mL (50nmol/L) Insufficiency 20 - 30 ng/mL (50 - 75 nmol/L) Sufficiency 30 - 100 ng/mL (75 - 250 nmol/L) Toxicity >100 ng/mL (>250 nmol/L) Performed By: #### L 501.9520, L100.0100, L500.4050, L506.1000 #### [facility] [address] [place], [address] CBC W/Diff, Automatedon 01-13 Absolute Lymph 1.27 X10 3/uL Normal 0.83-4.51 [facility] Comment on above: Performed By: #### L 501.9520, L100.0100, L500.4050, L506.1000 #### [facility] [address] [place], [address] Absolute Neut 4.5 X10 3/uL Normal 2.0-7.7 [facility] Comment on above: Performed By: #### L 501.9520, L100.0100, L500.4050, L506.1000 #### [facility] [address] [place], [address] Basophils/100 WBC (Bld) 0.9 % Normal 0-1 [facility] Comment on above: Performed By: #### L 501.9520, L100.0100, L500.4050, L506.1000 #### [facility] [address] [place], [address] Eosinophils/100 WBC (Bld) 3.1 % Normal 0-5 [facility] Comment on above: Performed By: #### L 501.9520, L100.0100, L500.4050, L506.1000 #### [facility] [address] [place], [address] Erythrocyte distribution width (RBC) [Ratio] 12.6 % Normal 11.6-14.6 [facility] Comment on above: Performed By: #### L 501.9520, L100.0100, L500.4050, L506.1000 #### [facility] [address] [place], [address] Hematocrit (Bld) [Volume fraction] 41.2 % Normal 37-47 [facility] Comment on above: Performed By: #### L 501.9520, L100.0100, L500.4050, L506.1000 #### [facility] [address] [place], [address] Hemoglobin (Bld) [Mass/Vol] 13.6 g/dL Normal 12.0-15.0 [facility] Comment on above: Performed By: #### L 501.9520, L100.0100, L500.4050, L506.1000 #### [facility] [address] [place], [address] IG% 0.200 Normal 0.0-0.9 [facility] Comment on above: Result Comment: IG% - Immature Granulocytes (promyelocytes, myelocytes and metamyelocytes) > 1% indicates that a LEFT SHIFT is Present. Performed By: #### L 501.9520, L100.0100, L500.4050, L506.1000 #### [facility] [address] [place], [address] Lymphocytes/100 WBC (Bld) 20.0 % Normal 19-41 [facility] Comment on above: Performed By: #### L 501.9520, L100.0100, L500.4050, L506.1000 #### [facility] [address] [place], [address] MCH (RBC) [Entitic mass] 29.8 pg Normal 27.0-32.0 [facility] Comment on above: Performed By: #### L 501.9520, L100.0100, L500.4050, L506.1000 #### [facility] [address] [place], [address] MCHC (RBC) [Mass/Vol] 33.0 g/dL Normal 32-36 [facility] Comment on above: Performed By: #### L 501.9520, L100.0100, L500.4050, L506.1000 #### [facility] [address] [place], [address] MCV (RBC) [Entitic vol] 90.4 fL Normal 81-99 [facility] Comment on above: Performed By: #### L 501.9520, L100.0100, L500.4050, L506.1000 #### [facility] [address] [place], [address] Monocytes/100 WBC (Bld) 4.6 % Normal 0-10 [facility] Comment on above: Performed By: #### L 501.9520, L100.0100, L500.4050, L506.1000 #### [facility] [address] [place], [address] Neutrophils/100 WBC (Bld) 71.2 % High 47-70 [facility] Comment on above: Performed By: #### L 501.9520, L100.0100, L500.4050, L506.1000 #### [facility] [address] [place], [address] Nucleated RBC (Bld) [#/Vol] 0 10*3/uL Normal 0-5 [facility] Comment on above: Performed By: #### L 501.9520, L100.0100, L500.4050, L506.1000 #### [facility] [address] [place], [address] Platelet mean volume (Bld) [Entitic vol] 10.8 fL Normal 6.2-12.0 [facility] Comment on above: Performed By: #### L 501.9520, L100.0100, L500.4050, L506.1000 #### [facility] [address] [place], [address] Platelets (Bld) [#/Vol] 274 10*3/uL Normal 150-450 [facility] Comment on above: Performed By: #### L 501.9520, L100.0100, L500.4050, L506.1000 #### [facility] [address] [place], [address] RBC (Bld) [#/Vol] 4.56 10*6/uL Normal 4.2-5.4 [facility] Comment on above: Performed By: #### L 501.9520, L100.0100, L500.4050, L506.1000 #### [facility] [address] [place], [address] RDW SD 41.1 fl Normal 35.1-43.9 [facility] Comment on above: Performed By: #### L 501.9520, L100.0100, L500.4050, L506.1000 #### [facility] [address] [place], [address] WBC (Bld) [#/Vol] 6.4 10*3/uL Normal 4.4-11.0 [facility] Comment on above: Performed By: #### L 501.9520, L100.0100, L500.4050, L506.1000 #### [facility] [address] [place], [address] Comprehensive Metabolic [facility] 01-30-2024 Albumin [Mass/Vol] 3.9 g/dL Normal 3.2-5.0 [facility] Comment on above: Performed By: #### L 501.9520, L100.0100, L500.4050, L506.1000 #### [facility] [address] [place], [address] Albumin/Globulin [Mass ratio] 1.1 {ratio} Normal 0.9-2.4 [facility] Comment on above: Performed By: #### L 501.9520, L100.0100, L500.4050, L506.1000 #### [facility] [address] [place], [address] ALK P 72 U/L Normal 45-117 [facility] Comment on above: Performed By: #### L 501.9520, L100.0100, L500.4050, L506.1000 #### [facility] [address] [place], [address] ALT [Catalytic activity/Vol] 18 U/L Normal 13-56 [facility] Comment on above: Performed By: #### L 501.9520, L100.0100, L500.4050, L506.1000 #### [facility] [address] [place], [address] AST [Catalytic activity/Vol] 13 U/L Low 15-37 [facility] Comment on above: Performed By: #### L 501.9520, L100.0100, L500.4050, L506.1000 #### [facility] [address] [place], [address] Bilirubin [Mass/Vol] 0.50 mg/dL Normal 0.20-1.00 [facility] Comment on above: Result Comment: For patients on eltrombopag therapy, use of Dimension Palmer TBIL is not recommended. Performed By: #### L 501.9520, L100.0100, L500.4050, L506.1000 #### [facility] [address] [place], [address] BUN/CRE 23.5 RATIO High 10-20 [facility] Comment on above: Performed By: #### L 501.9520, L100.0100, L500.4050, L506.1000 #### [facility] [address] [place], [address] CA,Total 9.3 mg/dL Normal 8.5-10.1 [facility] Comment on above: Performed By: #### L 501.9520, L100.0100, L500.4050, L506.1000 #### [facility] [address] [place], [address] Chloride [Moles/Vol] 107 mmol/L Normal 98-107 [facility] Comment on above: Performed By: #### L 501.9520, L100.0100, L500.4050, L506.1000 #### [facility] [address] [place], [address] CO2 [Moles/Vol] 28.0 mmol/L Normal 21.0-32.0 [facility] Comment on above: Performed By: #### L 501.9520, L100.0100, L500.4050, L506.1000 #### [facility] [address] [place], [address] Creatinine [Mass/Vol] 0.72 mg/dL Normal 0.55-1.02 [facility] Comment on above: Result Comment: The validity of the calculated GFR GFRAA in patients over 70 years has not been determined. Clinical correlation is essential. Performed By: #### L 501.9520, L100.0100, L500.4050, L506.1000 #### [facility] [address] [place], [address] EST GFR - AA 103 mL/min Normal >60 [facility] Comment on above: Result Comment: Afri can Chadian GFR Calc Performed By: #### L 501.9520, L100.0100, L500.4050, L506.1000 #### [facility] [address] [place], [address] GAP 5 Normal 5-15 [facility] Comment on above: Performed By: #### L 501.9520, L100.0100, L500.4050, L506.1000 #### [facility] [address] [place], [address] GFR/1.73 sq M.predicted among non-blacks MDRD (S/P/Bld) [Vol rate/Area] 85 mL/min/{1.73_m2} Normal >60 [facility] Comment on above: Result Comment: Non- GFR Calc Performed By: #### L 501.9520, L100.0100, L500.4050, L506.1000 #### [facility] [address] [place], [address] Globulin (S) [Mass/Vol] 3.5 g/dL Normal 2.2-4.2 [facility] Comment on above: Performed By: #### L 501.9520, L100.0100, L500.4050, L506.1000 #### [facility] [address] [place], [address] Glucose [Mass/Vol] 93 mg/dL Normal 74-106 [facility] Comment on above: Performed By: #### L 501.9520, L100.0100, L500.4050, L506.1000 #### [facility] [address] [place], [address] Potassium [Moles/Vol] 3.7 mmol/L Normal 3.5-5.1 [facility] Comment on above: Performed By: #### L 501.9520, L100.0100, L500.4050, L506.1000 #### [facility] [address] [place], [address] Sodium [Moles/Vol] 140 mmol/L Normal 136-145 [facility] Comment on above: Performed By: #### L 501.9520, L100.0100, L500.4050, L506.1000 #### [facility] [address] [place], [address] T PROT 7.4 g/dL Normal 6.4-8.2 [facility] Comment on above: Performed By: #### L 501.9520, L100.0100, L500.4050, L506.1000 #### [facility] [address] [place], [address] Urea nitrogen [Mass/Vol] 17 mg/dL Normal 7-18 [facility] Comment on above: Performed By: #### L 501.9520, L100.0100, L500.4050, L506.1000 #### [facility] [address] [place], [address] Thyroid Stim Hormone (TSH)on 01-30-2024 TSH 2.050 uIU/mL Normal 0.358-3.740 [facility] Comment on above: Performed By: #### L 501.9520, L100.0100, L500.4050, L506.1000 #### [facility] [address] [place], [address] MA MAMMOGRAM SCREENING RIGHT W/TOMOon 02-18-2023 MA MAMMOGRAM SCREENING RIGHT W/JAVIER ORIGINAL FROM: RANDY [address] [address] PROCEDURE FOR: FER KAUR [address] [place] [address] Home: PID#: [id number] Exam#: [id number] : 1955 Age: 67 TO: NICOLE QUINN MD [address] [place], [place] [address] Fax: NO FAX EXAMINATION: SCREENING DIGITAL RIGHT MAMMOGRAM WITH TOMOSYNTHESIS, 02/16/2023 1:07 pm TECHNIQUE: Screening mammography of the right breast was performed with tomosynthesis. 2D standard and 3D tomosynthesis combination imaging performed through the right breast in the MLO and CC projection. Computer aided detection was utilized in the interpretation of this exam. COMPARISON: 01/21/2021, 10/05/2018 HISTORY: Breast cancer screening. FINDINGS: BREAST DENSITY: Predominantly Fatty History of left mastectomy. Right routine and implant displaced views were obtained. Right retropectoral silicone implant is present. Implant may obscure breast parenchyma, making mammographic interpretation difficult. There are no significant masses or calcifications. IMPRESSION: No mammographic evidence of malignancy. Continued screening with annual mammograms is recommended. Tyrer Cuzick risk calculations do not apply for this patient. BIRADS: MAMMOGRAM BI-RADS: 2: Benign finding RECALL: 1 year screening RECALL TYPE: mammo LETTER SENT: Normal BI-RADS 1 and 2 Interpreted by: Gabriela Sepulveda Preliminary Report By: Gabriela Sepulveda Electronically signed By Gabriela Sepulveda Dictated Date: 02/18/2023 9:14:04 AM Prelim Date: 02/18/2023 9:16:45 AM Sign Date: 02/18/2023 9:16:45 AM Ordering Provider: NICOLE QUINN Invoicing Machine Operator: DWAIN SNOWDEN([place]) (M) letter sent: Normal BI-RADS 1 and 2 Mammogram BI-RADS: 2 Benign Normal [facility] ([place]) CNOVon 04-12-2022 CNOV Office Visit (NEAGCL M) FER KAUR ([id number]) 1955 F Date Time Provider Department 04/12/22 1:30 PM SHAWN SUTTON NEAGCLM During your visit today, we recorded the following information about you: Pulse Respiration Blood pressure Weight 91/minute 16/minute 151/95 60 kg Height 1.727 m Shawn Sutton MD 04/12/2022 1:46 PM Signed NEUROSURGERY FOLLOW UP OFFICE NOTE Dr. Shawn Sutton MD, FACS Date of visit: April 12, 2022 Patient Name: Ms.Rhonda Addison Kaur Date of : 1955 Current Age: [age] year old Sex: female MRN/E# [id number] Last Office Visit: 03/16/2022 Chief Complaint: Patient presents with: Established Patient SUBJECTIVE: The patient presents as a follow up with imaging (MRI B) for evaluation. This is a 66 year old female with a PMHx of HTN, anxiety that was seen in consult on 01/23/[address] Perez at [facility]. Patient was reportedly intoxicated and had a mechanical ground level fall and presented to an outside hospital. Imaging demonstrated a trace subarachnoid hemorrhage along left frontal and left cerebellum without signs of midline shift prompting transfer to [facility]. Repeat imaging remained stable and no surgical intervention was indicated. She was discharged home with recommendation to follow up in [address] brain. She was seen on 02/09/2022 reported that she was overall doing well. She denied any significant headaches but reported discomfort around the left ear. She was also having occasional tinnitus and a feeling of fullness to the left ear but denied any drainage. She had no visual changes, speech deficits, seizure activity, motor or sensory deficits to report. Neurologically she was intact on exam without focal deficit. Imaging was reviewed and showed resolution of the bleed in the left lateral frontal convexity. There continued to be a small hyperdensity in the left cerebellar hemisphere. Recommendation was to follow-up in [address] for evaluation. She was last seen on 03/16/2022 by Jazmin Tuttle APRN.CNP and reported that she was overall doing well. She denied any specific complaints or concerns. She did report occasional tenderness to the right side of her scalp and suspected it was from the fall however this was improving. She denied headache, visual changes, speech deficits, seizure activity, motor or sensory deficits. Neurologically she was intact on exam without focal deficit. CT was reviewed and showed complete resolution of the left frontal bleed. There continued to be an mildly hyperdense lesion in the left cerebellar region possibly representing a cavernous malformation. Recommendation was to obtain an MRI of the brain without and with contrast enhancement and follow-up for review prompting her visit today. Since last visit she states she is overall doing well. She continues to have right sided head discomfort but this is improving. She also has mild fullness in the right ear. . She presents for image review, evaluation and plan of care. 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 Hyperparathyroidism due to vitamin D deficiency (HCC) 12/13/2010 Internal hemorrhoids without mention of complication Malignant neoplasm of breast (female), unspecified site 03-16 Breast cancer Microscopic hematuria 05/03/2012 Osteopenia 12/13/2010 Postmenopausal osteoporosis 12/05/2013 Vitamin D deficiency 12/13/2010 PAST SURGICAL HISTORY Procedure Laterality Date APPENDECTOMY COLONOSCOPY FLX DX W/COLLJ SPEC WHEN PFRMD 04/27/07 MASTEC,MOD RADICAL 04-19-00 lt breast, with chemo tx PARATHYROIDECTOMY/EXPL ORATION PARATHYROIDS 2011 benign parathyroid tumor 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 0 PHYTONADIONE (VITAMIN K) 100 mcg tablet Take 100 mcg by mouth once daily. 0 Cholecalciferol, Vitamin D3, 1,000 unit cap Take 1 capsule by mouth once daily. 0 iv contrast (will be provided with ra (more content not included)... Normal [facility] MRI BRAIN WO/W IVCONon 04-06 MRI BRAIN WO/W IVCON * * *Final Report* * * DATE OF EXAM: Apr 06 2022 2:27PM A1M 0295 - MRI BRAIN WO/W IVCON / PROCEDURE REASON: Brain mass * * * * Physician Interpretation * * * * EXAMINATION: MRI BRAIN WO/W IVCON CLINICAL HISTORY: Brain mass, abnormal CTA head, evaluate. TECHNIQUE: Routine brain MRI protocol without and with contrast including diffusion images. MQ: [id number] Contrast: 11 mL Dotarem IV COMPARISON: CT head on 03/16/2022. RESULT: Acute Change: There is no evidence of restricted diffusion to suggest an acute infarct. Hemorrhage: No evidence of prior parenchymal hemorrhage on the gradient echo images. Mass Lesion/ Mass Effect: Small 9 x 10 x 9 mm T2 hyperintense nonenhancing lesion within left cerebellum corresponding to hyperdense lesion on CT examination. There is associated susceptibility artifact. No evidence of edema. No evidence of abnormal contrast enhancement intracranially. No significant mass effect or midline shift. Chronic Change: Scattered patchy areas of increased T2 and FLAIR signal are present in the supratentorial white matter which is a nonspecific finding but likely represents mild chronic microvascular ischemia. Parenchyma: No significant volume loss for age. Ventricles: Normal caliber and morphology. Skull Base: Hypothalamic and pituitary region are grossly normal. Craniocervical junction is normal. No significant marrow replacement process. Vasculature: Major intracranial arterial structures, and dural venous sinuses show typical flow void, suggesting patency by spin echo criteria. Other: Mild mucosal thickening within paranasal sinuses. No significant air-fluid levels. No significant mastoid fluid. The optic globes are symmetric and unremarkable. IMPRESSION: 1. Small left cerebellar lesion is most likely cavernous malformation. No significant edema, acute hemorrhage, or associated contrast enhancement. No additional similar lesions identified elsewhere. 2. No evidence of acute infarct, acute intracranial hemorrhage, or significant mass effect. No evidence of abnormal intracranial enhancement. 3. Mild amount of chronic small vessel ischemic white matter disease. Neurophysiologist: PSCB Transcribe Date/Time: Apr 11 2022 11:05A Dictated by : XENIA AIKEN MD This examination was interpreted and the report reviewed and electronically signed by: XENIA AIKEN MD on Apr 11 2022 11:25AM EST [id number] Normal [facility] CNOVon 03-16-2022 CNOV Office Visit (NEAGCL M) FER KAUR ([id number]) 1955 F Date Time Provider Department 03/16/22 1:30 PM JAZMIN TUTTLE NEAGCLM During your visit today, we recorded the following information about you: Pulse Respiration Blood pressure Weight 82/minute 16/minute 159/80 58.1 kg Height 1.727 m Jazmin Tuttle APRN.CNP 03/16/2022 1:54 PM Signed NEUROSURGERY FOLLOW UP OFFICE NOTE Jazmin Tuttle APRN.CNP Date of visit: March 16, 2022 Patient Name: Ms.Rhonda Addison Kaur Date of : 1955 Current Age: [age] year old Sex: female MRN/E# [id number] Last Office Visit: 02/09/2022 Chief Complaint: Patient presents with: Established Patient The patient presents for a follow up with imaging (CT B/MRI B) for evaluation. This is a 66 year old female with a PMHx of HTN, anxiety that was seen in consult on 01/23/[address] Perez at [facility]. Patient was reportedly intoxicated and had a mechanical ground level fall and presented to an outside hospital. Imaging demonstrated a trace subarachnoid hemorrhage along left frontal and left cerebellum without signs of midline shift prompting transfer to [facility]. Repeat imaging remained stable and no surgical intervention was indicated. She was discharged home with recommendation to follow up in [address] brain. She was seen on 02/09/2022 reported that she was overall doing well. She denied any significant headaches but reported discomfort around the left ear. She was also having occasional tinnitus and a feeling of fullness to the left ear but denied any drainage. She had no visual changes, speech deficits, seizure activity, motor or sensory deficits to report. Neurologically she was intact on exam without focal deficit. Imaging was reviewed and showed resolution of the bleed in the left lateral frontal convexity. There continued to be a small hyperdensity in the left cerebellar hemisphere. Recommendation was to follow-up in [address] for evaluation prompting her visit today. Since last visit she states she is overall doing well and denies any specific complaints or concerns. She does have occasional tenderness to the right side of her scalp she suspects from the fall however this is improving. She denies headache, visual changes, speech deficits, seizure activity, motor or sensory deficits. She presents for image review, evaluation and plan of care. 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 Hyperparathyroidism due to vitamin D deficiency (HCC) 12/13/2010 Internal hemorrhoids without mention of complication Malignant neoplasm of breast (female), unspecified site 2 Breast cancer Microscopic hematuria 05/03/2012 Osteopenia 12/13/2010 Postmenopausal osteoporosis 12/05/2013 Vitamin D deficiency 12/13/2010 PAST SURGICAL HISTORY Procedure Laterality Date APPENDECTOMY COLONOSCOPY FLX DX W/COLLJ SPEC WHEN PFRMD 04/27/07 MASTEC,MOD RADICAL 04-19-00 lt breast, with chemo tx PARATHYROIDECTOMY/EXPL ORATION PARATHYROIDS 2011 benign parathyroid tumor 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 0 PHYTONADIONE (VITAMIN K) 100 mcg tablet Take 100 mcg by mouth once daily. 0 Cholecalciferol, Vitamin D3, 1,000 unit cap Take 1 capsule by mouth once daily. 0 No current facility-administered medications for this visit. REVIEW OF SYSTEMS Review of Systems OBJECTIVE: BP 159/80 Pulse 82 Resp 16 Ht 5' 8 (1.73m) Wt 128 lb (58.1kg) SpO2 98% BMI 19.47 kg/(m2). Glascow Coma Scale: Best eye response: - 1. No eye opening. - 2. Eye opening in response to pain. - 3. Eye opening to speech. -4/ 4. Eyes opening spontaneously Best verbal response: - 1. No verbal response - 2. Incomprehensible sounds. - 3. Inappropriate words. - 4. Confused. 5/ 5. Oriented. Best motor response -1. No motor response -2. Extension to pain -3. Abnormal flexion to pain -4. Flexion/Withdrawal to pain -5. Localizes to pain. 6/6. Obeys co (more content not included)... Normal [facility] CT BRAIN WO IVCONon 03-16-[address] BRAIN WO IVCON * * *Final Report* * * DATE OF EXAM: Mar 16 2022 1:04PM A1C 0504 - CT BRAIN WO IVCON / PROCEDURE REASON: Traumatic subarachnoid hemorrhage with unknown loss of consciousness status, sub * * * * Physician Interpretation * * * * EXAMINATION: CT BRAIN WO IVCON CLINICAL HISTORY: Follow-up traumatic subarachnoid hemorrhage. Fall. Altered mental status. TECHNIQUE: Serial axial images without IV contrast were obtained from the vertex to the foramen magnum. MQ: CTBWO_3 CT Radiation dose: Integrated Dose-Length Product (DLP) for this visit = 695.20 mGy*cm CT Dose Reduction Employed: No dose reduction techniques were required COMPARISON: 02/09/2022. RESULT: Post-operative change: None. Acute change: No evidence of an acute infarct or other acute parenchymal process. Hemorrhage: No evidence of acute intracranial hemorrhage. ECASS hemorrhagic transformation score: Not Applicable Mass Lesion / Mass Effect: No appreciable change in small hyperdense mass within left cerebellum measuring 7 x 8 mm. No significant edema or mass effect. No significant midline shift. Chronic change: Scattered patchy foci of low attenuation are present within supratentorial white matter which is a nonspecific finding but likely represents mild microvascular ischemia. Parenchyma: There is mild generalized volume loss. Ventricles: Ventricular enlargement concordant with the degree of parenchymal volume loss. Paranasal sinuses and skull base: The visualized paranasal sinuses are grossly clear. The skull base and imaged soft tissues are unremarkable. Marketing Proposal Coordinator (topogram) images: No additional findings. IMPRESSION: 1. No appreciable change in small hyperdense mass within left cerebellum measuring 7 x 8 mm. No significant edema or mass effect. Differential includes but not limited to cavernous malformation. Recommend MRI brain without and with intravenous contrast. 2. No CT evidence of acute infarct or acute intracranial hemorrhage. Chronic findings, as detailed above. ACTIONABLE RESULT: FOLLOW-UP Acuity: Actionable Findings: Neurological System-BRAIN Routing Code: NI_1 Recommendation: MRI BRAIN WO/W IVCON Routine Time Frame: At the discretion of the clinical team. COMMUNICATION: Results will be communicated with the ordering provider via [employer] staff message or phone message by Imaging Support Services within 2 business days of report finalization. Algorithms for management of incidental imaging findings can be found on the [facility] Intranet Sharepoint site at: [email or web address]/doc [email or web address]%20Incidenta l%20Findi ngs%20at%20Imaging/For ms/[email or web address] Neurophysiologist: DEBO Transcribe Date/Time: Mar 16 2022 2:39P Dictated by : XENIA AIKEN MD This examination was interpreted and the report reviewed and electronically signed by: XENIA AIKEN MD on Mar 16 2022 2:44PM EST [id number] ACTIONABLE Invalid Interpretation Code [facility] Radiology [facility] CNPN Telephone (NTBIBA) FER KAUR ([id number]) 1955 F Date Time Provider Department 02/16/22 JEANMARIE ALVES NTBIBA During your visit today, we recorded the following information about you: Chandler Hayes Pss 02/16/2022 9:44 AM Signed I spoke to the patient. She would like to spoke with NS at her appointment next week before scheduling this eval. Thank you, Chandler @ [facility] Allergies As of Date: 02/16/2022 Noted Allergy Reaction SEASONAL ALLERGIES 11/27/2013 14 - Other: See Comments Date Reviewed: 02/09/2022 Reviewed by: Jazmin Tuttle APRN.MEMORIAL MARKER DESIGNER - Fully Assessed Reason for Visit: Appointment [186] Prescriptions as of 02/16/2022 - Magnesium 250 mg tab Take 1 tablet by mouth once daily. - PHYTONADIONE (VITAMIN K) 100 mcg tablet Take 100 mcg by mouth once daily. - Cholecalciferol, Vitamin D3, 1,000 unit cap Take 1 capsule by mouth once daily. Meds Comments as of 11/27/2013: Oil of Oregano Problem List As Of Date 02/16/2022 Noted Resolved MALIGN NEOPL BREAST NOS [C50.919] 09/06/2004 BONE AND CARTILAGE DIS NOS [M89.9, M94.9] BENIGN HYPERTENSION [I10] IDIOPATHIC GUTTATE HYPOMELANOSIS: DYSCHROMIA [*09/04/2008 INTRADERMAL NEVUS MOLE///BENIGN BEAN SKIN LEG [D*09/04/2008 XEROSIS//SEBACEOUS GLAND DIS NEC: HANDS [L73.8] 09/04/2008 S/P: DERMATITIS NOS OF HANDS: NOW CLEARED UP [*09/04/2008 SOLAR LENTIGENES///DYSCHROMI A OTHER [L81.9] 09/04/2008 ACTINIC DAMAGE///CHR SOLAR SKIN DAMAGE NOS [L57*09/04/2008 SEBORRHEIC KERATOSIS NOS [L82.1] 09/04/2008 NEVOCELLULAR NEVI MOLES///BENIGN BEAN SKIN TRUNK*09/04/2008 Urinary Disorder [N39.9] 09/29/2008 Plantar Fascial Fibromatosis [M72.2] 01/30/2009 Hyperparathyroidism due to vitamin D deficiency*12/13/2010 Vitamin D deficiency [E55.9] 12/13/2010 Anxiety [F41.9] 10/04/2011 Microscopic hematuria [R31.29] 05/03/2012 History of benign parathyroid tumor [Z86.018] 11/27/2013 Postmenopausal osteoporosis [M81.0] 12/05/2013 HX: breast cancer [Z85.3] 12/16/2014 Osteoporosis [M81.0] 01/19/2016 Traumatic subarachnoid hemorrhage with unknown *01/23/2022 Fall [W19.XXXA] 01/23/2022 Acute alcoholic intoxication without complicati*01/23/2022 Encounter Status:Closed by CHANDLER BURROWS on 02/16/[address] [facility] CT BRAIN WO IVCONon 02-11-20 Radiology Result ACTIONABLE Abnormal [facility] CNOVon 02-09-2022 CNOV Office Visit (NEAGCL M) FER KAUR ([id number]) 1955 F Date Time Provider Department 02/09/22 11:30 AM JAZMIN TUTTLELM During your visit today, we recorded the following information about you: Pulse Blood pressure Weight Height 78/minute 145/80 58.1 kg 1.727 m Jazmin Tuttle APRN.CNP 02/09/2022 12:40 PM Signed NEUROSURGERY FOLLOW UP OFFICE NOTE Jazmin Tuttle APRN.CNP Date of visit: February 09, 2022 Patient Name: Ms.Rhonda Addison Kaur Date of : 1955 Current Age: [age] year old Sex: female MRN/E# [id number] Last Office Visit: Hospital follow up Chief Complaint: Patient presents with: New Patient: Hospital discharge The patient presents as a hospital follow up with imaging (CT B) for evaluation. This is a 66 year old female with a PMHx of HTN, anxiety that was seen in consult on 01/23/[address] Perez at [facility]. Patient was reportedly drunk and had a mechanical ground level fall and presented to an outside hospital. Imaging demonstrated a trace subarachnoid hemorrhage along left frontal and left cerebellum without signs of midline shift prompting transfer to [facility]. Repeat imaging remained stable and no surgical intervention was indicated. She was discharged home with recommendation to follow up in [address] brain prompting her visit today. Since discharge she states she is overall doing well. She denies any significant headaches but reports discomfort around the left ear. States that she will have occasional tinnitus and a feeling of fullness but denies any drainage. She denies visual changes, speech deficits, seizure activity, motor or sensory deficits. She presents for image review, evaluation and plan of care. 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 due to vitamin D deficiency (HCC) 12/13/2010 Internal hemorrhoids without mention of complication Malignant neoplasm of breast (female), unspecified site 2- Breast cancer Microscopic hematuria 05/03/2012 Osteopenia 12/13/2010 Postmenopausal osteoporosis 12/05/2013 Vitamin D deficiency 12/13/2010 PAST SURGICAL HISTORY Procedure Laterality Date APPENDECTOMY COLONOSCOPY FLX DX W/COLLJ SPEC WHEN PFRMD 04/27/07 MASTEC,MOD RADICAL 04-19-00 lt breast, with chemo tx PARATHYROIDECTOMY/EXPL ORATION PARATHYROIDS 2011 benign parathyroid tumor 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 0 PHYTONADIONE (VITAMIN K) 100 mcg tablet Take 100 mcg by mouth once daily. 0 Cholecalciferol, Vitamin D3, 1,000 unit cap Take 1 capsule by mouth once daily. 0 No current facility-administered medications for this visit. REVIEW OF SYSTEMS Review of Systems Constitutional: Negative for chills, diaphoresis (Negative for night sweats.) and fever. HENT: Positive for ear pain. Negative for ear discharge and rhinorrhea. Eyes: Negative for discharge. Respiratory: Negative for cough, shortness of breath and wheezing. Cardiovascular: Negative for chest pain, palpitations and leg swelling. Gastrointestinal: Negative for constipation, diarrhea, nausea and vomiting. Endocrine: Negative for cold intolerance and heat intolerance. Genitourinary: Negative for frequency. Negative for urinary incontinence and urinary retention. Musculoskeletal: Negative for back pain, joint swelling, myalgias and neck pain. Skin: Negative for rash (Negative for hives and skin lesions.). Allergic/Immunologic: Negative for environmental allergies and food allergies. Negative for contact allergy, seasonal allergies. Neurological: Negative for dizziness, seizures, syncope, weakness, light-headedness, numbness (Negative for numbness in extremities.) and headaches. Hematological: Does not bruise/bleed easily. Psychiatric/Behavioral : The patient is not nervous/anxious. Negative for depression. OBJECTIVE: (more content not included)... Normal [facility] CT BRAIN WO IVCONon 02-10-[address] BRAIN WO IVCON * * *Final Report* * * DATE OF EXAM: Feb 09 2022 11:07AM A1C 0504 - CT BRAIN WO IVCON / PROCEDURE REASON: Injury of head, subsequent encounter * * * * Physician Interpretation * * * * EXAMINATION: CT BRAIN WO IVCON CLINICAL HISTORY: Injury of head, subsequent encounter. Follow up subdural hemorrhage TECHNIQUE: Serial axial images without IV contrast were obtained from the vertex to the foramen magnum. MQ: CTBWO_3 CT Radiation dose: Integrated Dose-Length Product (DLP) for this visit = 794.52 mGy*cm CT Dose Reduction Employed: No dose reduction techniques were required COMPARISON: CT brain 01/23/2022. Outside CT brain 01/22/2022 RESULT: Post-operative change: None. Acute change: No evidence of an acute infarct Hemorrhage: Small foci of hemorrhage over the left lateral frontal convexity has resolved. No new hemorrhage Mass Lesion / Mass Effect: There is a 1 cm mildly hyperintense lesion in the left cerebellar hemisphere, stable from 01/22/2022. No significant mass effect. Chronic change: None apparent. Parenchyma: There is no significant volume loss. The brain parenchyma is otherwise within normal limits for age. Ventricles: The ventricles are within normal limits of size and configuration for age. Paranasal sinuses and skull base: The visualized paranasal sinuses are grossly clear. The skull base and imaged soft tissues are unremarkable. Marketing Proposal Coordinator (topogram) images: No additional findings. IMPRESSION: Resolution of mild hemorrhage over the left lateral frontal convexity. No new intracranial findings. Stable 1 cm mildly hyperdense lesion in the left cerebellar hemisphere, which may represent cavernous malformation. MR brain without with contrast may be considered for further evaluation. ACTIONABLE RESULT: FOLLOW-UP Acuity: Actionable Findings: Neurological System-BRAIN Routing Code: NI_1 Recommendation: MRI BRAIN WO/W IVCON Routine Time Frame: At the discretion of the clinical team. COMMUNICATION: Results will be communicated with the ordering provider via [employer] staff message or phone message by Imaging Support Services within 2 business days of report finalization. Algorithms for management of incidental imaging findings can be found on the [facility] Intranet Sharepoint site at: [email or web address] [email or web address] l%20Findi ngs%20at%20Imaging/For ms/[email or web address] Neurophysiologist: DEBO Transcribe Date/Time: Feb 10 2022 10:57A Dictated by : LAURA ESPOSITO MD This examination was interpreted and the report reviewed and electronically signed by: LAURA ESPOSITO MD on Feb 10 2022 11:07AM EST [id number] ACTIONABLE Invalid Interpretation Code [facility] 25(OH)D3 [facility] 25-hydroxyvitamin D3 [Mass/Vol] 32.0 ng/mL Normal >=30.0 [facility] Comment on above: Order Comment: Speci men Type: BLOOD SPECIMEN Ordering Facility: [facility] Address: [address] [place] [id number] Result Comment: Clas sification of 25 [place] Vitamin D status: Deficiency: <= 20.0 ng/ml. Insufficiency: 21.0-29.0 ng/ml. Sufficiency: >= 30.0 ng/ml. Performed By: #### 1 [id number] #### [facility] CLIA [id number] [address] [place] [address] OF [facility] ALLIED HEALTHon 01-23-2022 ALLIED HEALTH HNO ID: [id number] Author: RT Jose D(R) Service: ? Author Type: Technologist Type: Allied Health Filed: 01/23/2022 4:52 AM Note Text: Radiology Service Progress Note PATIENT NAME: Fer Kaur DATE OF SERVICE: January 23, 2022 TIME: 4:51 AM PATIENT IDENTITY VERIFICATION COMPLETED USING TWO (2) IDENTIFIERS: Name and Date of confirmed by patient verbally and Name and Date of confirmed by identification band. FALL SCREENING: Has the patient had 2 falls in the last year or 1 fall with injury or currently using an Ambulatory Assistive Device (Walker, Cane, Wheelchair, Crutches, etc.)? Emergency Room Patient: Screened in ED PATIENT GENDER DATA: Female. status: : No status: NO. PATIENT RELEVANT IMPLANT DATA REVIEWED: Not Applicable RADIOLOGY DEPARTMENT: General X-ray: Exam(s) Completed: Chest X-Ray Pelvis X-Ray: Pelvis General AP PERIPHERAL IV DATA: Not applicable SIGNED BY: Marielos Pacheco, RT(R) January 23, 2022 4:[address] [facility] Absolute lymphocyte counton 01-23-2022 Lymphocytes Auto (Unsp spec) [#/Vol] 0.80 10*3/uL 0.83-4.51 [facility] Work Phone: Basophil percentageon 2021 Basophils/100 WBC (Bld) 0.6 % 0-1 [facility] Work Phone: Chloride [Moles/Vol] 107 mmol/L 98-107 [facility] Work Phone: Eosinophils/100 WBC (Bld) 0.5 % 0-5 [facility] Work Phone: Glucose [Mass/Vol] 103 mg/dL 74-106 [facility] Work Phone: Comment on above: Fasting Glucose resu lt from 100 to 125 mg/dL suggests IMPAIRED HOMEOSTASIS per A.D.A. criteria. Neutrophils (Bld) [#/Vol] 9.6 10*3/uL 2.0-7.7 [facility] Work Phone: Neutrophils/100 WBC (Bld) 85.8 % 47-70 [facility] Work Phone: Potassium [Moles/Vol] 3.0 mmol/L 3.5-5.1 [facility] Work Phone: Sodium [Moles/Vol] 138 mmol/L 136-145 [facility] Work Phone: WBC (Bld) [#/Vol] 11.1 10*3/uL 4.4-11.0 [facility] Work Phone: Blood erythrocytes count (nu mber/volume)on 01-23-2022 RBC (Bld) [#/Vol] 4.77 10*6/uL 4.2-5.4 [facility] Work Phone: Blood hemoglobin measurement (mass/volume)on 01-23-2022 Hemoglobin (Bld) [Mass/Vol] 14.5 g/dL 12.0-15.0 [facility] Work Phone: Blood lymphocytes/100 leukoc yteson 01-23-2022 Lymphocytes/100 WBC (Bld) 7.2 % 19-41 [facility] Work Phone: Blood monocytes/100 leukocyt eson 01-23-2022 Monocytes/100 WBC (Bld) 3.7 % 0-10 [facility] Work Phone: Blood platelet mean volumeon 01-23-2022 Platelet mean volume (Bld) [Entitic vol] 10.3 fL 6.2-12.0 [facility] Work Phone: CASE MANAGEMon 01-23-2022 CASE MANAGEM HNO ID: [id number] Author: Dhaval Fox RN Service: ? Author Type: Registered Nurse Type: Care Mgt Progress Note Filed: 01/24/2022 1:35 PM Note Text: CARE MANAGEMENT UTILIZATION REVIEW COMMITTEE PROVIDER LIABLE (Admission Status Discrepancy Review) Admission Date: 01/23/2022 Patient's Initial Order is: Inpatient Date Received: January 24, 2022 Date Reviewed: January 24, 2022 Under the authority of the Utilization Management Plan, the Physician Advisor, Dr. Gee Sanchez, has reviewed the medical record of the above patient. The following recommendation has been made by the Physician Advisor, based upon the current available medical information as of the date of this determination. The patient is appropriate for: Observation Rationale for this decision: Lack of medical necessity for inpatient admission and less than 2 midnight stay SIGNATURE: Dhaval Fox RN PATIENT NAME: Fer Kaur DATE: January 24, 2022 TIME: 1:34 PM PAGER/CONTACT #: [phone] Disclaimer: The information in this determination is to be used for utilization management purposes only. The information and recommendation is made pursuant to Medicare Hospital Conditions of Participation (442 CFR Part 482) and is neither a judgment nor an assessment with regard to the appropriateness or quality of the clinical care. Nothing in this document may be used to limit clinical services provided to the above named patient. This form should be used as one part of the process utilized to ensure compliance with [facility] policy regarding Inpatient Admission and Observation Services. The definitions of Inpatient and Observation used in making the determination above are those provided in Medicare Benefit Policy Manual Chapter 1, Section 1 and 10, Chapter 6, Section 20, and the Medicare Claims Processing Manual Chapter 1, Section 50.3 and Chapter 4, Section 290. This recommendation should be considered as only one factor in determining the patient's final level of service along with other pertinent documentation such as the treating physician's order as documented evidence of concurrence. Normal [facility] CBC panel Auto (Bld)on 01-23 Erythrocyte distribution width (RBC) [Ratio] 12.5 % Normal 11.5-15.0 [facility] Comment on above: Order Comment: Speci men Type: BLOOD SPECIMEN Ordering Facility: [facility] Address: [address] [address] Performed By: #### 2 4323-8, 2777-1, 3039-3, #### [facility] CLIA [id number] [address] OF [facility] Hematocrit (Bld) [Volume fraction] 42.5 % Normal 36.0-46.0 [facility] Comment on above: Order Comment: Speci men Type: BLOOD SPECIMEN Ordering Facility: [facility] Address: [address] [id number] Performed By: #### 2 4323-8, 2777-1, 3039-3, #### [facility] CLIA [id number] [address] [place] Hemoglobin (Bld) [Mass/Vol] 14.5 g/dL Normal 11.5-15.5 [facility] Comment on above: Order Comment: Speci men Type: BLOOD SPECIMEN Ordering Facility: [facility] Address: [address] [place] [address] Performed By: #### 2 4323-8, 2776-1, 3, #### [facility] CLIA [id number] [address] MCH (RBC) [Entitic mass] 29.8 pg Normal 26.0-34.0 [facility] Comment on above: Order Comment: Speci men Type: BLOOD SPECIMEN Ordering Facility: [facility] Address: [address] [place] [address] Performed By: #### 2 4323-8, 2776-1, 3039-04, #### [facility] CLIA [id number] [address] MCHC (RBC) [Mass/Vol] 34.1 g/dL Normal 30.5-36.0 [facility] Comment on above: Order Comment: Speci men Type: BLOOD SPECIMEN Ordering Facility: [facility] Address: [address] [place] [address] Performed By: #### 2 4323-8, 1, 3039-04, #### [facility] CLIA [id number] [address] MCV (RBC) [Entitic vol] 87.3 fL Normal 80.0-100.0 [facility] Comment on above: Order Comment: Speci men Type: BLOOD SPECIMEN Ordering Facility: [facility] Address: [address] [place] [address] Performed By: #### 2 4323-8, 1, 3039-04, #### [facility] CLIA [id number] [address] Nucleated RBC (Bld) [#/Vol] 10*3/uL Normal <0.01 [facility] Comment on above: Order Comment: Speci men Type: BLOOD SPECIMEN Ordering Facility: [facility] Address: [address] [place] [address] Performed By: #### 2 4323-8, 2777-1, 3039-3, #### [facility] CLIA [id number] 1 [place] [address] [place] Platelet mean volume (Bld) [Entitic vol] 10.5 fL Normal 9.0-12.7 [facility] Comment on above: Order Comment: Speci men Type: BLOOD SPECIMEN Ordering Facility: [facility] Address: [address] [place] [address] Performed By: #### 2 4323-8, 2777-1, 3039-3, #### [facility] CLIA [id number] 1 [place] [address] [place] Platelets (Bld) [#/Vol] 285 10*3/uL Normal 150-400 [facility] Comment on above: Order Comment: Speci men Type: BLOOD SPECIMEN Ordering Facility: [facility] Address: [address] [place] [address] Performed By: #### 2 4323-8, 7-1, 3039-3, #### [facility] CLIA [id number] [address] [place] RBC (Bld) [#/Vol] 4.87 10*6/uL Normal 3.90-5.20 [facility] Comment on above: Order Comment: Speci men Type: BLOOD SPECIMEN Ordering Facility: [facility] Address: [address] [place] [address] Performed By: #### 2 4323-8, 2777-1, 3039-3, #### [facility] CLIA [id number] 1 [place] [address] [place] WBC (Bld) [#/Vol] 12.96 10*3/uL High 3.70-11.00 [facility] Comment on above: Order Comment: Speci men Type: BLOOD SPECIMEN Ordering Facility: [facility] Address: [place] [address] Performed By: #### 2 4323-8, 2777-1, 3040-3, 23300-9 #### [facility] CLIA [id number] [address] [place] [address] OF [facility] CNDSon 01-23-2022 CNDS HNO ID: [id number] Author: Brooke Kenny MD Service: General Surgery Author Type: Physician Type: Discharge Summary Filed: 01/23/2022 10:29 PM Note Text: DISCHARGE SUMMARY PATIENT NAME: Fer Kaur Code Status: Not on file Highest Readmission Risk Score: 10 The 30 day readmissions risk score is derived from an internally validated risk model which evaluates patient level characteristics, utilization history, medication orders and lab results up until the day of discharge. Patients with a score of 40 or above are considered highest risk for readmission. Specific patient level drivers will be listed at the bottom of the summary. Admission Information Admission Information ADMIT DATE: 01/23/2022 DISCHARGE DATE: 01/23/2022 MY DOCTORS AND MEDICAL TEAM: My Main Hospital Doctor: Hero Busch MD Primary Care Provider: Blake Dominguez DO My Medical Team Members: Treatment Team: Attending Provider: Hero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 PARATHYROIDECTOMY/EXPL ORATION PARATHYROIDS 2011 benign parathyroid tumor 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 UPW/ Removal skin tags FAMILY HISTORY Problem Relation Age of Onset Hypertension Mother COPD Father smoker Thyroid Brother hypothyroidism Hypertension Father Heart Maternal Grandmother pacemaker Heart Maternal Aunt pacemaker Cancer Maternal Grandfather pancreatic cancer other (parathyroid tumor [Other]) Mother Social History Tobacco Use Smoking status: Former Smokeless tobacco: Never Tobacco comments: Patient was a passive smoker and quit 6 yeards ago Substance Use Topics Alcohol use: Yes Comment: SOCIAL ONLY Drug use: No (Not in a hospital admission) Current Facility-Administered Medications Medication Dose Route Frequency NaCl 0.9% iv flush bag 20 mL INTRAVENOUS PRN Allergies As of Date: 01/23/2022 Allergen Noted Reaction SEASONAL ALLERGIES 11/27/2013 Other: See Comments Fully Assessed 01/23/2022 COMPLETE REVIEW OF SYSTEMS: GENERAL: No weight loss, malaise or fevers. HEENT: Negative for frequent or significant headaches, No changes in hearing or vision, no nose bleeds or other nasal problems. NECK: Negative for lumps, goiter, pain and significant neck swelling. RESPIRATORY: Negative for cough, hemoptysis, wheezing, COPD, dyspnea or shortness of breath. CARDIOVASCULAR: Negative for chest pain, leg swelling, hypertension, CHF or palpitations. GI: No nausea, vomiting, or diarrhea. MUSCULOSKELETAL: Negative for joint pain or swelling, back pain or muscle pain. SKIN: Negative for lesions, rash, and itching. PSYCH: Negative for sleep disturbance, mood disorder and recent psychosocial stressors. NEURO: No history of headaches, syncope, paralysis, seizures or tremors. Objective PHYSICAL EXAM: BP 151/93 Pulse 90 Temp (Src) 98 (Oral) Resp 19 Ht 5' 8 (1.73m) Wt 135 lb (61.2kg) SpO2 98% BMI 20.53 kg/(m2). O2 Therapy: Room Air GENERAL: Alert. No distress. Resting comfortably. NEURO: AANDOx3. No focal neurologic deficits. Sensation grossly intact. HEENT: Normocephalic. Atraumatic. EOMI. LUNGS: Unlabored breathing on RA. Equal excursion bilaterally. CARDIAC: Regular rate. Good perfusion throughout. ABDOMEN: Soft, non-tender, non-distended. No rebound or guarding. EXTREMITIES: MELGAR. No deformities. SKIN: No obvious jaundice or pallor. DATA: Labs: No results for input(s): NA, K, CHLOR, CO2, BUN, CREAT, GLUC, ANION, CA, MG, P, ALB, AST, ALT, ALKPHOS, TBILI, DBILI, PHOSINTL, WBC, HB, HCT, PLT, LACT, INR, PH, PCO2, PO2, BE, HCO3 (more content not included)... Normal [facility] HISTORY PHYSICAL HNO ID: [id number] Author: Brooke Kenny MD Service: General Surgery Author Type: Physician Type: HANDP Filed: 01/23/2022 10:34 PM Note Text: CONSULT: TRAUMA SURGERY SERVICE Trauma Service Pager: For questions or concerns Mon-Mon 6a-5p please page [phone]. After 5pm and on Weekends and Holidays, please page [phone] if in ICU or [phone] if on RNF. CATEGORY: Consult SERVICE DATE: 01/23/2022 SERVICE TIME: 4:01 AM Subjective This is a 66 year old White female PMH of HTN, anxiety presents today as a trauma transfer from [place]. Patient was reportedly drunk and had a mechanical ground-level fall. Was worked up at outside hospital which showed trace subarachnoid hemorrhage along left inferior parietal lobe without signs of midline shift. Patient was transferred here for further trauma evaluation. Patient was reportedly walking in a parking lot when she had suffered a mechanical ground-level fall. She does not have any recollection of the incident. She apparently hit the right side of her head against the car side mirror. She then fell onto the ground. There was apparent loss of consciousness. Ethanol at the outside facility was 153 In the emergency department patient GCS 15, neuromotor intact. Her only complaint is some right ear and face pain Denies any blood thinners ALLERGIES Allergen Reactions Seasonal Allergies Other: See Comments (Not in a hospital admission) Immunization History Administered Date(s) Administered COVID-19 original vaccine, age 12+ yr, monovalent (DOCUSYS - PURPLE TOP) 05/28/2020 06/18/2020 01/28/2021 Influenza Seasonal Inj Age 3+ 11/27/2013 Influenza Vaccine, Split-Non Spec 01/10/2007 02/21/2008 01/12/2010 Influenza Vaccine, Whole 01/18/2003 Tdap (Age 7+) 01/06/2006 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 Hyperparathyroidism due to vitamin D deficiency (HCC) 12/13/2010 Internal hemorrhoids without mention of complication Malignant neoplasm of breast (female), unspecified site 2- Breast cancer Microscopic hematuria 05/03/2012 Osteopenia 12/13/2010 Postmenopausal osteoporosis 12/05/2013 Vitamin D deficiency 12/13/2010 PAST SURGICAL HISTORY Procedure Laterality Date APPENDECTOMY COLONOSCOPY FLX DX W/COLLJ SPEC WHEN PFRMD 04/27/07 MASTEC,MOD RADICAL 04-19-00 lt breast, with chemo tx PARATHYROIDECTOMY/EXPL ORATION PARATHYROIDS 2011 benign parathyroid tumor 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 EYES: No vision changes CARDIOVASCULAR: No chest pain. PULM: No Shortness of Breath. GI: No Nausea, Vomiting, or abdominal pain : No pain with urination or gross hematuria. NEURO: No weakness or numbness of concern. MUSC-SKEL: No new joint pain, swelling, or erythema. Objective PRIMARY SURVEY AIRWAY: Patent BREATHING: Breath sounds equal CIRCULATION: PT/DP 2+, Radials 2+, Femoral 2+ DISABILITY: Eye: 4=Spontaneous Verbal: 5=Oriented and Converses Motor: 6=Obeys Commands Total GCS: 15=4 Resp Rate: 10 to 29=4 Syst BP: > than 89=4 REVISED TRAUMA SCORE: 12 EXPOSE / ENVIRONMENT: Not Applicable PROCEDURES: None SECONDARY SURVEY VITALS: BP 151/93 Pulse 90 Temp (Src) 98 (Oral) Resp 19 Ht 5' 8 (1.73m) Wt 135 lb (61.2kg) SpO2 98% BMI 20.53 kg/(m2). O2 Therapy: Room Air NEURO: Alert AND Oriented x 3, GCS 15 HEENT: Ecchymosis to the right cheek and periorbital region, abrasion to the right ear, no active bleeding NECK: No midline pain with palpation, No pain with active ROM RESPIRATORY: No abrasions or contusions, No crepitus CARDIOVASCULAR: Heart rate regular, S1S2 with no R/M/G ABDOMEN: No scars or lacerations PELVIC/PERINEAL: Pelvis stable to palpation BACK/SPINE: Thoracolumbar spinal column non-tender EXTREMITIES: No gross deformities RADIOLOGICAL/OTHER TEST DATA: See below PRIOR TO ARRIVAL: Loss of Consciousness for unknown minutes IMAGES No orders to display LABS: CBC, Coags, BMP, Mg, Phos Assessment/Plan DIAGNOSES: 66-year-old female ground-level fall TREATMENT/EVALUATION PLANS: Imaging performed: CT head neck face Chest x-ray Pelvis x-ray Traumatic Injuries: Trace subarachnoid hemorrhage along the inferior left parietal lobe Operations: None Care Plan: Admit to ICU SAH Non-operative ICH management - Rpt CTH in 6 hrs. - Hold DVT chemo-ppx. - HOB elevated 30 degrees. - Maintain systoli (more content not included)... Normal [facility] Hematocrit Auto (Bld) [Volum e fraction]on 01-23-2022 Hematocrit (Bld) [Volume fraction] 42.6 % 37-47 [facility] Work Phone: INR in Blood by Coagulation assayon 01-23-2022 INR Coag (Bld) [Relative time] 1.0 {INR} [facility] Work Phone: Laboratory - Chemistry and C hemistry - challengeon 01-23-2022 CO2 [Moles/Vol] 24.0 mmol/L 21.0-32.0 [facility] Work Phone: Urea nitrogen/Creatinin e [Mass ratio] 21.8 mg/mg 10-20 [facility] Work Phone: Laboratory - Coagulationon 1 03-26-2021 aPTT Coag (Bld) [Time] 29.9 s 24.1-36.2 [facility] Work Phone: PT Coag (PPP) [Time] 13.3 s 11.7-14.9 [facility] Work Phone: Laboratory - Hematology and Cell countson 01-23-2022 Erythrocyte distribution width (RBC) [Entitic vol] 40.1 fL 35.1-43.9 [facility] Work Phone: Erythrocyte distribution width (RBC) [Ratio] 12.2 % 11.6-14.6 [facility] Work Phone: Immature granulocytes/100 WBC (Bld) 2.200 % 0.0-0.9 [facility] Work Phone: Comment on above: IG% - Immature Granu locytes (promyelocytes, myelocytes and metamyelocytes) > 1% indicates that a LEFT SHIFT is Present. MCH (RBC) [Entitic mass] 30.4 pg 27.0-32.0 [facility] Work Phone: Nucleated RBC/100 WBC (Bld) [Ratio] 0 % 0-5 [facility] Work Phone: Lipase SerPl-cCncon 01-24-20 22 Lipase [Catalytic activity/Vol] 17 U/L Normal 16-61 [facility] Comment on above: Order Comment: Speci men Type: BLOOD SPECIMEN Ordering Facility: [facility] Address: [address] [place] [phone] Performed By: #### 2 4323-8, 2777-1, 3040-3, 20341-6 #### [facility] CLIA [id number] [address] [place] [phone] [place] MCHC Auto (RBC) [Mass/Vol]on 01-23-2022 MCHC (RBC) [Mass/Vol] 34.0 g/dL 32-36 [facility] Work Phone: Magnesium SerPl-mCncon 01-23 Magnesium [Mass/Vol] 2.2 mg/dL Normal 1.7-2.3 [facility] Comment on above: Order Comment: Pam gloria Type: BLOOD SPECIMEN Ordering Facility: [facility] Address: [place] [address] Performed By: #### 2 4323-8, 2777-1, 3040-3, 95200-6 #### [facility] CLIA [id number] [address] OF [facility] No Panel Informationon 01-23 Estimated Creatinine Clearance Calc 82.00 ml/min [facility] Work Phone: Estimated GFR (MDRD) Amer 110 mL/min >60 [facility] Work Phone: Comment on above: GFR Calc Estimated GFR (MDRD) Non-Af Amer 91 mL/min >60 [facility] Work Phone: Comment on above: Non- GFR Calc Ethyl Alcohol Level 153.0 mg/dL [facility] Work Phone: Comment on above: The serum:whole bloo d ethanol ratio is approximately 1.14and varies slightly with hematocrit. Medical Alcohol reference interval and critical value innon-tolerant individuals; 50 - 100 Impairment 100 Intoxication 100 - 250 Severe Poisoning 250 - 400 Deep/possible fatal coma PT panel Coag (PPP)on 2021 INR Coag (PPP) [Relative time] 1.0 {INR} Normal 0.9-1.3 [facility] Comment on above: Order Comment: Pam gloria Type: BLOOD SPECIMEN Ordering Facility: [facility] Address: [place] [address] Result Comment: Liliya min K Antagonist (VKA) Therapeutic Range: INR 2 to 3 (Target INR of 2.5) Note: For patients treated with VKA drugs, such as warfarin, the [employer] 2012 Guideline recommends a therapeutic INR range of 2 to 3 (target INR of 2.5). This recommendation includes high-risk patients with antiphospholipid syndrome with previous arterial or venous thromboembolism, current-generation mechanical or bioprosthetic aortic heart valve replacement. Note: Patients with mechanical aortic valve replacement and additional risk factors for thromboembolic events (atrial fibrillation, previous thromboembolism, LV dysfunction, hypercoagulable conditions) or an older generation mechanical AVR (i.e., ball in-Cage) or any mechanical MVR should have a INR therapeutic range of 2.5 to 3.5 (target INR of 3). Fransico GH, et al. Chest 2012, 141:7S-47S Carmen RA, et al. [facility] 2017, 70: 252-289 Performed By: #### 2 4323-8, 2777-1, 0-3, 76150-5 #### [facility] CLIA [id number] [address] [place] [address] [place] PT Coag (PPP) [Time] 10.3 s Normal 9.7-13.0 [facility] Comment on above: Order Comment: Pam gloria Type: BLOOD SPECIMEN Ordering Facility: [facility] Address: [address] [place] [address] Performed By: #### 2 4323-8, 2777-1, 3039-3, #### [facility] CLIA [id number] [address] [place] [address] [place] Phosphate SerPl-mCncon 01-23 Phosphate [Mass/Vol] 3.0 mg/dL Normal 2.7-4.8 [facility] Comment on above: Order Comment: Pam gloria Type: BLOOD SPECIMEN Ordering Facility: [facility] Address: [address] [place] [address] Performed By: #### 2 4323-8, 2777-1, 3039-3, #### [facility] CLIA [id number] [address] [place] [address] [place] Platelets bldon 01-23-2022 Platelets (Bld) [#/Vol] 300 10*3/uL 150-450 [facility] Work Phone: SARS-CoV-2 RNA Resp Ql STEVE+p robeon 01-23-2022 SARS-CoV-2 (COVID-19) RNA STEVE+probe Ql (Resp) COVID 19 RESULT: SARS-CoV-2 (Agent of COVID-19) Not Detected by RT-PCR or equivalent method. This test has been authorized by FDA under an Emergency Use Authorization (EUA). [facility] Comment on above: Performed By: #### 2 4323-8, 2777-1, 0-3, #### [facility] CLIA [id number] [address] [place] Serum or plasma calcium ivan urement (mass/volume)on 01-23-2022 Calcium [Mass/Vol] 9.3 mg/dL 8.5-10.1 [facility] Work Phone: Serum or plasma creatinine m easurement (mass/volume)on 01-23-2022 Creatinine [Mass/Vol] 0.69 mg/dL 0.55-1.02 [facility] Work Phone: Comment on above: The validity of the calculated GFR & GFRAA in patients over 70 years has not been determined. Clinical correlation is essential. Serum or plasma urea nitroge n measurement (mass/volume)on 01-23-2022 Urea nitrogen [Mass/Vol] 15 mg/dL 7-18 [facility] Work Phone: TYPE + SCREENon 01-23-2022 ABO O [facility] Comment on above: Order Comment: Speci men Type: BLOOD SPECIMEN Ordering Facility: [facility] Address: [address] [place] [address] Performed By: #### 2 4323-8, 2777-1, 0-3, #### [facility] CLIA [id number] [address] STATES OF [facility] HISTORICAL AB SCR STATUS Negative [facility] Comment on above: Order Comment: Speci men Type: BLOOD SPECIMEN Ordering Facility: [facility] Address: [address] [phone] Performed By: #### 2 4323-8, 2777-1, 3040-3, 36411-0 #### [facility] CLIA [id number] [address] [place] [id number] [place] Rh Nom (Bld) Positive Normal [facility] Comment on above: Order Comment: Speci men Type: BLOOD SPECIMEN Ordering Facility: [facility] Address: [address] [place], [place] [phone] Performed By: #### 2 4323-8, 2777-1, 3040-3, 51088-8 #### [facility] CLIA [id number] [address] [place] [phone] [facility] [place] TYPE AND SCREEN EXPIRATION 01/26/2022 23:[address] [facility] Comment on above: Order Comment: Speci men Type: BLOOD SPECIMEN Ordering Facility: [facility] Address: [address] [place], [place] [phone] Performed By: #### 2 4323-8, 2777-1, 3040-3, 49207-1 #### [facility] CLIA [id number] [address] [place] [phone] [place] Thin prep Papanicolaou smear with manual screeningon 01-23-2022 Thin prep Papanicolaou smear with manual screening 7 5-15 [facility] Work Phone: XR CHEST 1V FRONTALon 2021 XR CHEST 1V FRONTAL * * *Final Report* * * DATE OF EXAM: Jan 23 2022 4:47AM [id number] - XR CHEST 1V FRONTAL / PROCEDURE REASON: Chest pain, nonspecific * * * * Physician Interpretation * * * * EXAM: XR PELVIS 1V AP, XR CHEST 1V FRONTAL HISTORY: Pain, trauma COMPARISON: Chest radiograph 11/13/2019 FINDINGS: Chest: Unremarkable cardiomediastinal contours. Well-aerated lungs without focal effusion or pneumothorax. No displaced fracture. Pelvis: No pelvic fracture or diastases. Hips are normally aligned. Left hip degenerative change with partial joint space narrowing. Moderate rectal stool burden. IMPRESSION: Negative chest. No evidence of pelvic fracture. Neurophysiologist: DEBO Transcribe Date/Time: Jan 23 2022 4:48A Dictated by : PROSPER WILSON MD This examination was interpreted and the report reviewed and electronically signed by: PROSPER WILSON MD on Jan 23 2022 4:50AM EST [id number] [facility] XR PELVIS 1V APon 01-23-2022 XR PELVIS 1V AP * * *Final Report* * * DATE OF EXAM: Jan 23 2022 4:47AM [id number] - XR PELVIS 1V AP / PROCEDURE REASON: Pelvic trauma * * * * Physician Interpretation * * * * EXAM: XR PELVIS 1V AP, XR CHEST 1V FRONTAL HISTORY: Pain, trauma COMPARISON: Chest radiograph 11/13/2019 FINDINGS: Chest: Unremarkable cardiomediastinal contours. Well-aerated lungs without focal effusion or pneumothorax. No displaced fracture. Pelvis: No pelvic fracture or diastases. Hips are normally aligned. Left hip degenerative change with partial joint space narrowing. Moderate rectal stool burden. IMPRESSION: Negative chest. No evidence of pelvic fracture. Neurophysiologist: PSCB Transcribe Date/Time: Jan 23 2022 4:48A Dictated by : PROSPER WILSON MD This examination was interpreted and the report reviewed and electronically signed by: PROSPER WILSON MD on Jan 23 2022 4:50AM EST [id number] Normal [facility] aPTT PPPon 01-23-2022 aPTT Coag (PPP) [Time] 27.6 s Normal 23.0-32.4 [facility] Comment on above: Order Comment: Speci men Type: BLOOD SPECIMEN Ordering Facility: [facility] Address: [address] [place], [place] [address] Performed By: #### 2 4323-8, 2777-1, 3040-3, 95763-0 #### [facility] CLIA [id number] 1 [place] [address] [place] CORONAVIRUS PCR [CCL]on REF LAB REPORT Negative Normal [facility] Comment on above: Performed By: #### 2 [id number] #### [facility],[address] [place] [address] SARS-CoV-2 (COVID-19) RNA STEVE+probe Ql (Unsp spec) Nasopharyngeal Swab Normal [facility] Comment on above: Performed By: #### 2 33858 #### [facility],[address] [place] [address] SARS-CoV-2 (COVID-19) RNA STEVE+probe Ql (Unsp spec) Negative Normal [facility] Comment on above: Result Comment: Nega tive for COVID19 (SARS CoV2) by PCR. This test was developed and its performance characteristics determined by [facility] [place]. This test has been authorized by FDA under an Emergency Use Authorization (EUA). This test has been validated in accordance with the FDA's Guidance Document Policy for Diagnostics Testing in Laboratories Certified to Perform High Complexity Testing under CLIA prior to Emergency use Authorization for Coronavirus Disease 2019 during the Public Health Emergency issued on April 13, [place] [address] Gino Olmedo III, M.D. [id number] Performed By: #### 2 [id number] #### [facility],[address] [place] [address] Coronavirus 2019 0 COVID 19 Result DRUM MAKER Normal Negative for COVID19 (SARS CoV2) by PCR. [facility] Comment on above: Result Comment: Nega tive for This test was developed and its performance characteristics determined by [facility] [place]. This test has been authorized by FDA under an Emergency Use Authorization (EUA). This test has been validated in accordance with the FDA's Guidance Document Policy for Diagnostics Testing in Laboratories Certified to Perform High Complexity Testing under CLIA prior to Emergency use Authorization for Coronavirus Disease 2019 during the Public Health Emergency issued on April 13, 2019. COVID19 (SARS This test was developed and its performance characteristics determined by [facility] [place]. This test has been authorized by FDA under an Emergency Use Authorization (EUA). This test has been validated in accordance with the FDA's Guidance Document Policy for Diagnostics Testing in Laboratories Certified to Perform High Complexity Testing under CLIA prior to Emergency use Authorization for Coronavirus Disease 2019 during the Public Health Emergency issued on April 13, 2019. CoV2) by PCR. This test was developed and its performance characteristics determined by [facility] [place]. This test has been authorized by FDA under an Emergency Use Authorization (EUA). This test has been validated in accordance with the FDA's Guidance Document Policy for Diagnostics Testing in Laboratories Certified to Perform High Complexity Testing under CLIA prior to Emergency use Authorization for Coronavirus Disease 2019 during the Public Health Emergency issued on April 13, 2019. COVID 19 Source DRUM MAKER DRUM MAKER Normal [facility] CORONAVIRUS PCR [CCL]on REF LAB REPORT Negative Normal [facility] Comment on above: Performed By: #### 2 [id number] #### [facility],[address] [place] [address] SARS-CoV-2 (COVID-19) RNA STEVE+probe Ql (Unsp spec) DRUM MAKER SWAB Normal [facility] Comment on above: Performed By: #### 2 25595 #### [facility],[address] [place] [address] SARS-CoV-2 (COVID-19) RNA STEVE+probe Ql (Unsp spec) Negative Normal [facility] Comment on above: Result Comment: Nega tive for COVID19 (SARS CoV2) by PCR. This test was developed and its performance characteristics determined by [facility] [place]. This test has been authorized by FDA under an Emergency Use Authorization (EUA). This test has been validated in accordance with the FDA's Guidance Document Policy for Diagnostics Testing in Laboratories Certified to Perform High Complexity Testing under CLIA prior to Emergency use Authorization for Coronavirus Disease 2019 during the Public Health Emergency issued on April 13, 2019. [address] [place] [address] Gino Olmedo III, M.D. [id number] Performed By: #### 2 12096 #### [facility],[address] [place], [place] [id number] MRI BREAST W/O CON BILon MRI BREAST W/O CON COMPA MRI BREAST W/O CON COMPA Ordering Physician: Blake Dominguez DO 11/24/2018 2:48 PM MRI OF BILATERAL BREASTS WITHOUT CONTRAST: Clinical Statement: Displacement of breast prosthesis and implants, possible rupture of breast implants, dull pain, breast surgery in 2000 Comparison: Report from outside hospital 10/05/2018, no imaging available for comparison TECHNIQUE: T1 and T2 axial images as well as T2 sagittal fat suppression and T2 axial STIR images were obtained without IV contrast. Bilateral sagittal silicone suppression imaging was also performed. FINDINGS: The RIGHT breast is comprised of scattered fibrous elements without suspicious findings on this noncontrast exam. There are reconstruction changes to the LEFT breast without residual breast tissue. The preimplant fat of the LEFT breast demonstrates normal signal. The anterior chest wall structures and pectoral fascial planes are maintained. There is no axillary lymphadenopathy. There is no skin thickening. The right nipple line is preserved. There are bilateral retropectoral silicone breast implants. The RIGHT breast implant appears intact with radial folds. There is an intracapsular rupture of the LEFT breast implant with herniation and inferior and posterior migration of the implant. No extracapsular rupture of the LEFT breast implant is seen. There are foci of water along the inferior aspect of the ruptured LEFT implant, likely representing areas of condensation. IMPRESSION: Intracapsular rupture of the LEFT breast implant with herniation and posteroinferior migration of the implant. No extracapsular rupture is seen. RIGHT breast implant appears intact with radial folds. No abnormal findings of the RIGHT breast tissue. No axillary lymphadenopathy. Dictated by Outcomes Manager: America Lal DO Reviewed and Signed by: Abhishek Dunaway MD ---- Electronic Signature on File ---- Signed By: Abhishek Dunaway MD [email or web address] Dictated: 11/26/2018 2:11 PM Signed: 11/26/2018 2:44 PM Reported By: ABHISHEK DUNAWAY M.D. Signed By: ABHISHEK DUNAWAY M.D. [facility] Vital Signs Date Time Vital Sign Value Performing Clinician Faci lity 03-16-2022 13:06-0500 Body height 172.7 cm Jazmin Fegatelli STRUCTURAL WELDER.MEMORIAL MARKER DESIGNER Work Phone: [facility] 03-16-2022 13:06-0500 Body weight 58.06 kg Jazmin Fegatelli STRUCTURAL WELDER.MEMORIAL MARKER DESIGNER Work Phone: [facility] 03-16-2022 13:06-0500 Diastolic blood pressure 80 mm[Hg] Jzamin Fegatelli STRUCTURAL WELDER.MEMORIAL MARKER DESIGNER Work Phone: [facility] 03-16-2022 13:06-0500 Heart rate 82 /min Jazmin Fegatelli STRUCTURAL WELDER.MEMORIAL MARKER DESIGNER Work Phone: [facility] 03-16-2022 13:06-0500 Respiratory rate 16 /min Jazmin Fegatelli STRUCTURAL WELDER.MEMORIAL MARKER DESIGNER Work Phone: [facility] 03-16-2022 13:06-0500 SaO2% (BldA) [Mass fraction] 98 % Jazmin Fegatelli STRUCTURAL WELDER.MEMORIAL MARKER DESIGNER Work Phone: [facility] 03-16-2022 13:06-0500 Systolic blood pressure 159 mm[Hg] Jazmin Fegatelli STRUCTURAL WELDER.MEMORIAL MARKER DESIGNER Work Phone: [facility] 02-09-2022 11:08-0500 Body height 172.7 cm Jazmin Fegatelli STRUCTURAL WELDER.MEMORIAL MARKER DESIGNER Work Phone: [facility] 02-09-2022 11:08-0500 Body weight 58.06 kg Jazmin Fegatelli STRUCTURAL WELDER.MEMORIAL MARKER DESIGNER Work Phone: [facility] 02-09-2022 11:08-0500 Diastolic blood pressure 80 mm[Hg] Jazmin Fegatelli STRUCTURAL WELDER.MEMORIAL MARKER DESIGNER Work Phone: [facility] 02-09-2022 11:08-0500 Heart rate 78 /min Jazmin Fegatelli STRUCTURAL WELDER.MEMORIAL MARKER DESIGNER Work Phone: [facility] 02-09-2022 11:08-0500 SaO2% (BldA) [Mass fraction] 99 % Jazmin Fegatelli STRUCTURAL WELDER.MEMORIAL MARKER DESIGNER Work Phone: [facility] 02-09-2022 11:08-0500 Systolic blood pressure 145 mm[Hg] Jazmin Tuttle APRN.MEMORIAL MARKER DESIGNER Work Phone: [facility] 01-23-2022 02:26-0500 Diastolic blood pressure 80 mm[Hg] [facility] Work Phone: 01-23-2022 02:26-0500 Heart rate 99 /min [facility] Work Phone: 01-23-2022 02:26-0500 Respiratory rate 19 /min [facility] Work Phone: 01-23-2022 02:26-0500 SaO2% (BldA) [Mass fraction] 96 % [facility] Work Phone: 01-23-2022 02:26-0500 Systolic blood pressure 143 mm[Hg] [facility] Work Phone: 01-22-2022 23:08-0500 Body height 172.72 cm [facility] Work Phone: 01-22-2022 23:08-0500 Body mass index (BMI) [Ratio] 22.2 kg/m2 [facility] Work Phone: 01-22-2022 23:08-0500 Body temperature 97.9 [degF] [facility] Work Phone: 01-22-2022 23:08-0500 Body weight 66.3 kg [facility] Work Phone: Encounters Encounter Date Encounter Type Care Provider Facility Start: 08-12-2024 Encounter for genera l adult medical examination without abnormal findings Amrik Mccoy [facility] Start: 08-07-2024 End: 08-07-2024 ambulatory Amrik Mccoy MD Work Phone: -[facility] Start: 08-07-2024 End: 08-07-[address] Amrik Mccoy MD -Laboratory [facility] Start: 08-07-2024 End: 08-07-2024 ambulatory Chalon Darius Facility:[facility] Start: 04-03-2024 End: 04-03-2024 ambulatory Chalon Darius Facility:[facility] Start: 04-01-2024 Encounter for genera l adult medical examination without abnormal findings Zechariah Alston [facility] Start: 03-25-2024 End: 03-25-2024 ambulatory Marion Guadarrama Makenna Facility:[facility] Start: 03-18-2024 End: 03-18-2024 ambulatory Chalon Darius Facility:[facility] Start: 03-18-2024 End: 03-18-2024 ambulatory Marion Guadarrama Velde Facility:[facility] Start: 03-12-2024 ambulatory Chalon Darius Facility:[facility] Start: 03-12-2024 End: 03-12-2024 ambulatory Chalon Darius Facility:[facility] Start: 01-30-2024 End: 01-30-2024 ambulatory Chalon Darius Facility:[facility] Start: 02-16-2023 End: 02-17-2023 ambulatory NICOLE QUINN MD Facility:[facility] Start: 02-16-2023 End: 02-16-2023 Patient encounter procedure NICOLE QUINN MD [facility] Start: 04-12-2022 End: 04-12-2022 ambulatory SHAWN SUTTON Facility:[facility] Start: 04-06-2022 ambulatory BLAKE Peck ty:[facility] Start: 04-06-2022 End: 04-06-2022 Subsequent hospital visit by physician Mri [facility] Service Supervisor [facility] [employer] PERSON Comment on above: Brain mass [G93.89] Start: 03-16-2022 End: 03-16-2022 ambulatory JAZMIN TUTTLE [facility] Start: 03-16-2022 End: 03-16-2022 Patient encounter procedure Jazmin Tuttle APRN.CNP Work Phone: [facility] Comment on above: Traumatic subarachno id hemorrhage with unknown loss of consciousness status, subsequent encounter (Primary Dx); Cavernous malformation Start: 03-16-2022 End: 03-16-2022 Subsequent hospital visit by physician [facility] RADIO CT SCAN [place] CONSTRUCTION PERSON Comment on above: Traumatic subarachno id hemorrhage with unknown loss of consciousness status, subsequent encounter [S06.6XAD] Start: 02-28-2022 ambulatory Elise Shepherd PA-C Work Phone: [facility] Start: 02-16-2022 Telephone encounter Jeanmarie gentile MD Work Phone: Neurology Comment on above: Appointment Start: 02-09-2022 End: 02-09-2022 ambulatory JAZMIN TUTTLE Facility:[facility] Start: 02-09-2022 End: 02-09-2022 Patient encounter procedure Jazmin Tuttle APRN.MEMORIAL MARKER DESIGNER Work Phone: [facility] Comment on above: Traumatic subarachno id hemorrhage with unknown loss of consciousness status, subsequent encounter (Primary Dx) Start: 02-09-2022 End: 02-09-2022 Subsequent hospital visit by physician [facility] RADIO CT SCAN [place] CONSTRUCTION PERSON Comment on above: Injury of head, subs equent encounter [S09.90XD] Start: 01-28-2022 Orders Only Carli Perez MD Work Phone: [facility] Comment on above: Injury of head, subs equent encounter (Primary Dx) Start: 01-23-2022 End: 01-23-2022 Evaluation and management of inpatient BLAKE DOMINGUEZ Facility:[facility] Start: 01-22-2022 End: 01-23-2022 Emergency department patient visit [facility]-Emergency Department Start: 01-21-2021 End: 01-21-2021 Patient encounter procedure BLAKE DOMINGUEZ DO [facility] Start: 06-18-2020 End: 06-18-[address] HERO SAENZ [facility] Start: 05-28-2020 End: 05-28-[address] [facility] Start: 11-13-2019 End: 11-13-[address] HERO Gentile [facility] Start: 09-18-2019 End: 09-18-[address] HERO Gentile [facility] Procedures Date Procedure Procedure Detail Performing Clinician Start: 08-07-2024 Measurement of Borre josef burgdorferi antibody Amrik Mccoy MD Work Phone: Comment on above: Lyme antibodies not detected. Reflex testing is notindicated.No laboratory evidence of infection with B. burgdorferi(Lyme disease). Negative results may occur in patientsrecently infected (less than or equal to 14 days) with B.burgdorferi. If recent infection is suspected, repeattesting on a new sample collected in 7 to 14 days isrecommended.Performed at: [address] [id number] Director: Logan Maldonado PhD, Phone: [phone] Start: 03-16-2022 Ct head/brain w/o co ntrast material Jazmin Tuttle APRN.CNP Work Phone: Start: 02-09-2022 Ct head/brain w/o co ntrast material Carli Perez MD Work Phone: Start: 01-23-2022 Antibody screen JAZMIN ANTONIO Comment on above: Order Comment: Speci men Type: BLOOD SPECIMEN Ordering Facility: [facility] Address: [address] [place], [place] [id number] Performed By: #### 2 4323-8, 2777-1, 3040-3, 02741-9 #### [facility] CLIA [id number] 1 [place] [address] [place] Start: 01-22-2022 CT cervical spine wi thout contrast Start: 01-22-2022 CT of face Start: 01-22-2022 CT of head without contrast Start: 01-25-2016 Mammography Carli Saldana MD Work Phone: Start: 02-13-2011 Parathyroidectomy [facility] DO Start: 04-27-2007 Colonoscopy Carli Saldana MD Work Phone: Start: 02-14-2000 Mastectomy of left breast BLAKE DOMINGUEZ DO Appendectomy BLAKE DOMINGUEZ DO Plan of Treatment Date Care Activity Detail Author Start: 08-07-2028 Urine microalbumin profile DTAP,TDAP,TD (3 - Td or Tdap) [facility] Start: 01-23-2025 DIABETES SCREEN DIABETES SCREEN [facility] Start: 02-13-2022 ADVANCE DIRECTIVE DISCUSSION ADVANCE DIRECTIVE DISCUSSION [facility] Start: 02-13-2022 DEPRESSION ASSESSMENT DEPRESSION ASS ESSMENT [facility] Start: 10-14-2021 Influenza vaccination INFLUENZA (#1) [facility] Start: 2021 ADVANCE DIRECTIVE DISCUSSION ADVANCE DIRECTIVE DISCUSSION [facility] Start: 2021 BONE DENSITY BONE DENSITY [facility] Start: 2021 PNEUMOCOCCAL: 65+ (1 - PCV) PNEUMOCOCCAL: 65+ (1 - PCV) [facility] Start: 03-25-2021 COVID-19 VACCINE (4 - Booster for Pfizer series) COVID-19 VACCINE (4 - Booster for Pfizer series) [facility] Start: 02-13-2021 DEPRESSION ASSESSMENT DEPRESSION ASS ESSMENT [facility] Start: 01-10-2021 LIPID SCREEN LIPID SCREEN [facility] Start: 04-26-2017 Colonoscopy COLONOSCOPY [facility] Start: 04-26-2017 COLORECTAL CANCER SCREENING COLORECTAL CANCER SCREENING [facility] Start: 01-24-2017 Mammography MAMMOGRAM [facility] Start: 01-07-2016 Urine microalbumin profile DTAP,TDAP,TD (2 - Td or Tdap) [facility] Start: 2006 SHINGRIX VACCINE (1 of 2) SHINGRIX VACCINE (1 of 2) [facility] Start: 2001 COLOGUARD (FIT-DNA) COLOGUARD (FIT-D NA) [facility] Start: [address] COLONOGRAPHY [facility] Start: 2001 FECAL OCCULT BLOOD FECAL OCCULT BLOO D [facility] Start: 2001 [facility] Start: 1974 ANNUAL PCP TEAM SHOE SHANKER JOHN DISEASE VISIT ANNUAL PCP TEAM CHRONIC DISEASE VISIT [facility] Start: 1974 BP CONTROLLED (<130/80) BP CONTROLLE D (<130/80) [facility] Start: 1974 HEPATITIS C SCREENING HEPATITIS C SC SHANNAN [facility] Start: 1974 HIV SCREENING HIV SCREENING [facility] End: 02-27-2023 CT BRAIN WO IVCON CT BRAIN WO IVCON Radiology Routine Injury of head, subsequent encounter 1 Occurrences starting 01/28/2022 until 02/27/2023 [facility] Work Phone: Comment on above: 1 Occurrences starti ng 01/28/2022 until 02/27/2023 End: 03-11-2023 CT BRAIN WO IVCON CT BRAIN WO IVCON Radiology Routine Traumatic subarachnoid hemorrhage with unknown loss of consciousness status, subsequent encounter 1 Occurrences starting 02/09/2022 until 03/11/2023 [facility] Work Phone: Comment on above: 1 Occurrences starti ng 02/09/2022 until 03/11/2023 End: 04-06-2022 Mri brain brain stem w/o w/contrast material [facility] Work Phone: Comment on above: 1 Occurrences starti ng 04/06/2022 until 04/06/2022 Patient referral [facility] Work Phone: [facility] Immunizations Immunization Date Immunization Notes Care Provider Megan nguyen 12-09-2020 influenza, injectabl e, quadrivalent, preservative free Jazmin Tuttle APRN.CNP Work Phone: [facility] 12-09-2020 influenza, injectabl e, quadrivalent, contains preservative; Translations: [Fluarix PF Quadrivalent ] BLAKE DOMINGUEZ DO [facility] 06-18-2020 SARS-CoV-2 mRNA (tozinameran) vaccine BLAKE DOMINGUEZ DO [facility] 05-28-2020 SARS-CoV-2 mRNA (tozinameran) vaccine BLAKE DOMINGUEZ DO [facility] 12-12-2019 influenza, injectabl e, quadrivalent, preservative free; Translations: [Fluarix PF Quadrivalent ] BLAKE DOMINGUEZ DO [facility] 12-04-2018 influenza, injectabl e, quadrivalent, preservative free; Translations: [Fluarix PF Quadrivalent ] BLAKE DOMINGUEZ DO [facility] 08-07-2018 tetanus toxoid, redu karen diphtheria toxoid, and acellular pertussis vaccine, adsorbed BLAKE DOMINGUEZ DO [facility] 11-27-2013 influenza virus vaccine, unspecified formulation BLAKE DOMINGUEZ DO [facility] 11-27-2013 influenza, seasonal, injectable Caril Saldana MD Work Phone: [facility] 01-12-2010 influenza virus vaccine, unspecified formulation Carli Saldana MD Work Phone: [facility] Work Phone: 02-21-2008 influenza virus vaccine, unspecified formulation Carli Saldana MD Work Phone: [facility] 01-10-2007 influenza virus vaccine, unspecified formulation Carli Saldana MD Work Phone: [facility] Work Phone: 01-06-2006 tetanus toxoid, redu karen diphtheria toxoid, and acellular pertussis vaccine, adsorbed Carli Saldana MD Work Phone: [facility] 01-18-2003 influenza virus vaccine, whole virus Carli Saldana MD Work Phone: [facility] Work Phone: Payers Date Payer Category Payer Unknown [id number] 2024 Self-pay [id number] 2023 Medicare [id number] 2021 Medicare MEDICARE MEDICAR E A AND B [id number] 2021-Present [phone] [address] [address] [place] [address] Medicare [id number] 2021 Medicare [id number] 2021 Private Health Insurance [facility] AARP SUPPLEMENT [id number] 2021-Present [phone] [address] [place] [address] Indemnity [id number] 2021 Unknown [id number] 2003 Private Health Insurance [id number] 1955 Unknown [id number]. 627 1955 Unknown [id number] 2.16.840.1.370816.3.579.2. 651 1955 Unknown [id number] 2.16.840.1.282415.3.579.2. 651 1955 Unknown [id number] 2.16.840.1.912681.3.579.2. 651 1955 Unknown [id number] 2.16.840.1.602617.3.579.2. 651 Unknown [id number] Unknown [id number] Unknown [id number] 2.16.840.1.686632.3.579.2. 462 Unknown [id number] 2.16.840.1.480530.3.579.2. 462 Unknown [id number] 2.16.840.1.234406.3.579.2. 462 Unknown [id number] 2.16.840.1.854287.3.579.2. 462 Unknown [id number] 2.16.840.1.030817.3.579.2. 462 Unknown [id number] 2.16.840.1.292582.3.579.2. 462 Unknown [id number] 2.16.840.1.520728.3.579.2. 462 Unknown [id number]. 462 Social History Date Type Detail Facility Start: 03-05-2020 End: 02-09-2022 Ex-smoker (finding) [facility] Start: 1955 Sex Assigned At Female A [facility] Start: 01-22-2022 [facility] Work Phone: History of tobacco use Current smoker [facility] Start: 10-04-2011 End: 02-09-2022 Tobacco use and exposure Smokeless tobacco non-user [facility] Start: 09-29-2021 End: 03-16-2022 Alcohol intake Current drinker of alcohol (finding) [facility] Start: 1955 Sex Assigned At Not on file C [facility] Start: 02-09-2022 Tobacco Comment Patient was a passive smoker and quit 6 yeards ago [facility] Start: 03-18-2024 [facility] (finding) [facility] Clinical Notes 02-09-2022 to 04-12-2022 Sylvia Blank, RT(R) - 04/06/2022 1:15 PM Tee Tuttle APRN.MEMORIAL MARKER DESIGNER - 03/16/2022 1:30 PM Jackie Shepherd PA-C - 02/28/2022 7:25 AM Tee Tuttle APRN.MEMORIAL MARKER DESIGNER - 02/09/2022 11:30 AM ESTLaboratory Note Date & Type Note Facility 04-12-2022 Note HNO ID: [id number] Author: Shawn Sutton MD Service: ? Author Type: Physician Type: Progress Notes Filed: 04/12/2022 1:46 PM Note Text: NEUROSURGERY FOLLOW UP OFFICE NOTE Dr. Shawn Sutton MD, FACS Date of visit: April 12, 2022 Patient Name: Ms.Rhonda Addison Kaur Date of : 1955 Current Age: [age] year old Sex: female MRN/E# [id number] Last Office Visit: 03/16/2022 Chief Complaint: Patient presents with: Established Patient SUBJECTIVE: The patient presents as a follow up with imaging (MRI B) for evaluation. This is a 66 year old female with a PMHx of HTN, anxiety that was seen in consult on 01/23/[address] Perez at [facility]. Patient was reportedly intoxicated and had a mechanical ground level fall and presented to an outside hospital. Imaging demonstrated a trace subarachnoid hemorrhage along left frontal and left cerebellum without signs of midline shift prompting transfer to [facility]. Repeat imaging remained stable and no surgical intervention was indicated. She was discharged home with recommendation to follow up in [address] brain. She was seen on 02/09/2022 reported that she was overall doing well. She denied any significant headaches but reported discomfort around the left ear. She was also having occasional tinnitus and a feeling of fullness to the left ear but denied any drainage. She had no visual changes, speech deficits, seizure activity, motor or sensory deficits to report. Neurologically she was intact on exam without focal deficit. Imaging was reviewed and showed resolution of the bleed in the left lateral frontal convexity. There continued to be a small hyperdensity in the left cerebellar hemisphere. Recommendation was to follow-up in [address] for evaluation. She was last seen on 03/16/2022 by Jazmin Tuttle APRN.CNP and reported that she was overall doing well. She denied any specific complaints or concerns. She did report occasional tenderness to the right side of her scalp and suspected it was from the fall however this was improving. She denied headache, visual changes, speech deficits, seizure activity, motor or sensory deficits. Neurologically she was intact on exam without focal deficit. CT was reviewed and showed complete resolution of the left frontal bleed. There continued to be an mildly hyperdense lesion in the left cerebellar region possibly representing a cavernous malformation. Recommendation was to obtain an MRI of the brain without and with contrast enhancement and follow-up for review prompting her visit today. Since last visit she states she is overall doing well. She continues to have right sided head discomfort but this is improving. She also has mild fullness in the right ear. . She presents for image review, evaluation and plan of care. 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 Hyperparathyroidism due to vitamin D deficiency (HCC) 12/13/2010 Internal hemorrhoids without mention of complication Malignant neoplasm of breast (female), unspecified site 2-01 Breast cancer Microscopic hematuria 05/03/2012 Osteopenia 12/13/2010 Postmenopausal osteoporosis 12/05/2013 Vitamin D deficiency 12/13/2010 PAST SURGICAL HISTORY Procedure Laterality Date APPENDECTOMY COLONOSCOPY FLX DX W/COLLJ SPEC WHEN PFRMD 04/27/07 MASTEC,MOD RADICAL 04-19-00 lt breast, with chemo tx PARATHYROIDECTOMY/EXPLORATION PARATHYROIDS 2011 benign parathyroid tumor 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 0 PHYTONADIONE (VITAMIN K) 100 mcg tablet Take 100 mcg by mouth once daily. 0 Cholecalciferol, Vitamin D3, 1,000 unit cap Take 1 capsule by mouth once daily. 0 iv contrast (will be provided with radiology test) MRI Brain Inject, intravenously, once for 1 dose.No IV access, insert saline lock prior to beginning of sedation, infusion, injection of imaging exam.Discontinue saline lock post exam. If Pt. has a central line or IVAD, may access for administration according to l (more content not included)... [facility] 04-06-2022 Note HNO ID: [id number] Author: RT Mariam([place]) Service: Radiology Author Type: Technologist Type: Progress Notes Filed: 04/06/2022 2:16 PM Note Text: Radiology Service Progress Note DATE OF SERVICE: April 06, 2022 TIME: 2:16 PM PATIENT IDENTITY VERIFICATION COMPLETED USING TWO (2) STANDARD IDENTIFIERS: Name and Date of confirmed by patient verbally. FALL SCREENING: Has the patient had 2 falls in the last year or 1 fall with injury or currently using an Ambulatory Assistive Device (Walker, Cane, Wheelchair, Crutches, etc.)? Yes, Patient High Risk for Falls What interventions were put in place to prevent falls during this visit? Instructed Patient to Call for Help if Needed, Offered Assistance with Transfers/Clothing, Instructed Patient to Remain Seated (Not on Exam Table) Until Exam, and Increased Observations by Caregivers PATIENT GENDER DATA: Female. status: : No status: NO. PATIENT RELEVANT IMPLANT DATA REVIEWED: Yes ALLERGIES: Reviewed and unchanged CONTRAST ALLERGY: NO. EXAM: MRI - CONTRAST TYPE: GROUP II PERIPHERAL IV DATA: Ambulatory: A peripheral IV was started in the Right forearm with a Butterfly: 25 gauge. RADIOLOGY DEPARTMENT: MR; Exam(s) Completed: Head: Routine Brain SIGNATURE: RT Mariam(R) PATIENT NAME: Fer Kaur DATE: April 06, 2022 TIME: 2:[address] [facility] 04-06-2022 History of Presen t illness Narrative Radiology Service Progress Note DATE OF SERVICE: April 06, 2022 TIME: 2:16 PM PATIENT IDENTITY VERIFICATION COMPLETED USING TWO (2) STANDARD IDENTIFIERS: Name and Date of confirmed by patient verbally. FALL SCREENING: Has the patient had 2 falls in the last year or 1 fall with injury or currently using an Ambulatory Assistive Device (Walker, Cane, Wheelchair, Crutches, etc.)? Yes, Patient High Risk for Falls What interventions were put in place to prevent falls during this visit? Instructed Patient to Call for Help if Needed, Offered Assistance with Transfers/Clothing, Instructed Patient to Remain Seated (Not on Exam Table) Until Exam, and Increased Observations by Caregivers PATIENT GENDER DATA: Female. status: : No status: NO. PATIENT RELEVANT IMPLANT DATA REVIEWED: Yes ALLERGIES: Reviewed and unchanged CONTRAST ALLERGY: NO. EXAM: MRI - CONTRAST TYPE: GROUP II PERIPHERAL IV DATA: Ambulatory: A peripheral IV was started in the Right forearm with a Butterfly: 25 gauge. RADIOLOGY DEPARTMENT: MR; Exam(s) Completed: Head: Routine Brain SIGNATURE: RT Mariam([place]) PATIENT NAME: Fer Kaur DATE: April 06, 2022 TIME: 2:16 PM documented in this encounter [facility] 03-16-2022 Note HNO ID: [id number] Author: Jazmin Tuttle APRN.CNP Service: ? Author Type: Nurse Practitioner Type: Progress Notes Filed: 03/16/2022 1:54 PM Note Text: NEUROSURGERY FOLLOW UP OFFICE NOTE Jazmin Tuttle APRN.CNP Date of visit: March 16, 2022 Patient Name: Ms.Rhonda Addison Kaur Date of : 1955 Current Age: [age] year old Sex: female MRN/E# [id number] Last Office Visit: 02/09/2022 Chief Complaint: Patient presents with: Established Patient The patient presents for a follow up with imaging (CT B/MRI B) for evaluation. This is a 66 year old female with a PMHx of HTN, anxiety that was seen in consult on 01/23/[address] Perez at [facility]. Patient was reportedly intoxicated and had a mechanical ground level fall and presented to an outside hospital. Imaging demonstrated a trace subarachnoid hemorrhage along left frontal and left cerebellum without signs of midline shift prompting transfer to [facility]. Repeat imaging remained stable and no surgical intervention was indicated. She was discharged home with recommendation to follow up in [address] brain. She was seen on 02/09/2022 reported that she was overall doing well. She denied any significant headaches but reported discomfort around the left ear. She was also having occasional tinnitus and a feeling of fullness to the left ear but denied any drainage. She had no visual changes, speech deficits, seizure activity, motor or sensory deficits to report. Neurologically she was intact on exam without focal deficit. Imaging was reviewed and showed resolution of the bleed in the left lateral frontal convexity. There continued to be a small hyperdensity in the left cerebellar hemisphere. Recommendation was to follow-up in [address] for evaluation prompting her visit today. Since last visit she states she is overall doing well and denies any specific complaints or concerns. She does have occasional tenderness to the right side of her scalp she suspects from the fall however this is improving. She denies headache, visual changes, speech deficits, seizure activity, motor or sensory deficits. She presents for image review, evaluation and plan of care. 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 Hyperparathyroidism due to vitamin D deficiency (HCC) 12/13/2010 Internal hemorrhoids without mention of complication Malignant neoplasm of breast (female), unspecified site 2- Breast cancer Microscopic hematuria 05/03/2012 Osteopenia 12/13/2010 Postmenopausal osteoporosis 12/05/2013 Vitamin D deficiency 12/13/2010 PAST SURGICAL HISTORY Procedure Laterality Date APPENDECTOMY COLONOSCOPY FLX DX W/COLLJ SPEC WHEN PFRMD 04/27/07 MASTEC,MOD RADICAL 04-19-00 lt breast, with chemo tx PARATHYROIDECTOMY/EXPLORATION PARATHYROIDS 2011 benign parathyroid tumor 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 0 PHYTONADIONE (VITAMIN K) 100 mcg tablet Take 100 mcg by mouth once daily. 0 Cholecalciferol, Vitamin D3, 1,000 unit cap Take 1 capsule by mouth once daily. 0 No current facility-administered medications for this visit. REVIEW OF SYSTEMS Review of Systems OBJECTIVE: BP 159/80 Pulse 82 Resp 16 Ht 5' 8 (1.73m) Wt 128 lb (58.1kg) SpO2 98% BMI 19.47 kg/(m2). Glascow Coma Scale: Best eye response: - 1. No eye opening. - 2. Eye opening in response to pain. - 3. Eye opening to speech. -4/ 4. Eyes opening spontaneously Best verbal response: - 1. No verbal response - 2. Incomprehensible sounds. - 3. Inappropriate words. - 4. Confused. 5/ 5. Oriented. Best motor response -1. No motor response -2. Extension to pain -3. Abnormal flexion to pain -4. Flexion/Withdrawal to pain -5. Localizes to pain. 6/6. Obeys commands. Total: 15/15 PHYSICAL EXAM: Mental State : Alert, memory function unremarkable. Attention span and concentration normal for patient's age. Speech normal, no receptive or expressive speech deficit. Recent and remote memory normal. Orientation : Oriented to (more content not included)... [facility] 03-16-2022 History of Presen t illness Narrative NEUROSURGERY FOLLOW UP OFFICE NOTE Jazmin Tuttle APRN.CNP Date of visit: March 16, 2022 Patient Name: Ms.Rhonda Addison Kaur Date of : 1955 Current Age: [age] year old Sex: female MRN/E# [id number] Last Office Visit: 02/09/2022 Chief Complaint: Patient presents with: Established Patient The patient presents for a follow up with imaging (CT B/MRI B) for evaluation. This is a 66 year old female with a PMHx of HTN, anxiety that was seen in consult on 01/23/[address] Perez at [facility]. Patient was reportedly intoxicated and had a mechanical ground level fall and presented to an outside hospital. Imaging demonstrated a trace subarachnoid hemorrhage along left frontal and left cerebellum without signs of midline shift prompting transfer to [facility]. Repeat imaging remained stable and no surgical intervention was indicated. She was discharged home with recommendation to follow up in [address] brain. She was seen on 02/09/2022 reported that she was overall doing well. She denied any significant headaches but reported discomfort around the left ear. She was also having occasional tinnitus and a feeling of fullness to the left ear but denied any drainage. She had no visual changes, speech deficits, seizure activity, motor or sensory deficits to report. Neurologically she was intact on exam without focal deficit. Imaging was reviewed and showed resolution of the bleed in the left lateral frontal convexity. There continued to be a small hyperdensity in the left cerebellar hemisphere. Recommendation was to follow-up in [address] for evaluation prompting her visit today. Since last visit she states she is overall doing well and denies any specific complaints or concerns. She does have occasional tenderness to the right side of her scalp she suspects from the fall however this is improving. She denies headache, visual changes, speech deficits, seizure activity, motor or sensory deficits. She presents for image review, evaluation and plan of care. 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 Hyperparathyroidism due to vitamin D deficiency (HCC) 12/13/2010 Internal hemorrhoids without mention of complication Malignant neoplasm of breast (female), unspecified site 03-16 Breast cancer Microscopic hematuria 05/03/2012 Osteopenia 12/13/2010 Postmenopausal osteoporosis 12/05/2013 Vitamin D deficiency 12/13/2010 PAST SURGICAL HISTORY Procedure Laterality Date APPENDECTOMY COLONOSCOPY FLX DX W/COLLJ SPEC WHEN PFRMD 04/27/07 MASTEC,MOD RADICAL 04-19-00 lt breast, with chemo tx PARATHYROIDECTOMY/EXPLORATION PARATHYROIDS 2011 benign parathyroid tumor 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 0 PHYTONADIONE (VITAMIN K) 100 mcg tablet Take 100 mcg by mouth once daily. 0 Cholecalciferol, Vitamin D3, 1,000 unit cap Take 1 capsule by mouth once daily. 0 No current facility-administered medications for this visit. REVIEW OF SYSTEMS Review of Systems OBJECTIVE: BP 159/80 Pulse 82 Resp 16 Ht 5' 8 (1.73m) Wt 128 lb (58.1kg) SpO2 98% BMI 19.47 kg/(m^2). Glascow Coma Scale: Best eye response: - 1. No eye opening. - 2. Eye opening in response to pain. - 3. Eye opening to speech. -4/ 4. Eyes opening spontaneously Best verbal response: - 1. No verbal response - 2. Incomprehensible sounds. - 3. Inappropriate words. - 4. Confused. 5/ 5. Oriented. Best motor response -1. No motor response -2. Extension to pain -3. Abnormal flexion to pain -4. Flexion/Withdrawal to pain -5. Localizes to pain. 6/6. Obeys commands. Total: 15/15 PHYSICAL EXAM: Mental State : Alert, memory function unremarkable. Attention span and concentration normal for patient's age. Speech normal, no receptive or expressive speech deficit. Recent and remote memory normal. Orientation : Oriented to person, place and time. Higher Cortical Function : Intact speech and language. Spontaneous speech and comprehension normal. Fund of knowledge intact for pt level of education. Cranial Nerves : II: No visual field cut no blurring, Makes and sustains eye contact III, IV, : Normal, no double vision or drooping. Pupils equal and reactive to light. Extraocular muscles intact. No nystagmus V: Normal sensation on the face, normal jaw movements VII: No paresis on either side VIII: No gross hearing deficit IX: Good and equal shoulder shrugs XII: Tongue midline, no fasciculations Sensory: Normal Sensation in upper and lower extremities and trunk to touch and noxious stimuli. Motor: Normal muscle tone and bulk. No tremor or uncontrollable movements. No spasticity or tremor. Strength: Upper Extremities : R L Deltoid 5/5 5/5 Biceps 5/5 5/5 Triceps 5/5 5/5 Wrist Ext 5/5 5/5 Wrist Flx 5/5 5/5 Hand Int 5/5 5/5 Lower Extremities : Hip Flexors 5/5 5/5 Hip Extensors 5/5 5/5 Hip Abductors 5/5 5/5 Straight leg Neg Neg Ankle dorsiflex 5/5 5/5 Ankle Plantar 5/5 5/5 Heel Walking intact intact Toe Walking intact intact Reflexes : Biceps 2+ 2+ Triceps 2+ 2+ Wrist 2+ 2+ Patellar 2+ 2+ Achilles 2+ 2+ Loza's Neg Neg Tinel's Neg Neg Phalen's Neg Neg Cerebellar Function : Normal finger to nose. Normal rapid alternating movements. No ataxia. Negative Romberg. Gait and Station: Normal gait. No assistive device usage. Pulmonary: Lungs without cough, audible wheeze. Respirations unlabored. Cardiac: Regular rate and rhythm. No murmer, gallop or rub. Data Review IMAGING STUDIES: CT Brain WO IVCON performed today 03/09/22 demonstrates: Complete resolution of left lateral frontal convexity hemorrhage. No evidence of acute intracranial hemorrhage. 1 cm mildly hyperdense lesion in the left cerebellar hemisphere appears stable and unchanged when compared to prior imaging. Await final radiology report. Personal review of medical records: I reviewed with the patient, history, physical exam, the images and the chart. ASSESSMENT/PLAN: (S06.6XAD) Traumatic subarachnoid hemorrhage with unknown loss of consciousness status, subsequent encounter (primary encounter diagnosis) (Q28.3) Cavernous malformation Comment: The patient returns today for a follow-up. He reports that she is overall doing well and denies any specific complaints or concerns since her last visit. Neurologically she is intact on exam without focal deficit. CT brain was reviewed and shows complete resolution of the mild hemorrhage over the left lateral frontal convexity. There is no evidence of acute intracranial bleeding. There continues to be a 1 cm mildly hyperdense lesion in the left cerebellar hemisphere possibly representing a cavernous malformation. This was discussed with the patient and therefore MRI of the brain without and with contrast is indicated. Once this is completed she will follow-up with Dr. Sutton for review and further planning. All of her questions and concerns were addressed in detail. Plan: Follow-up with Dr. Khayyat after MRI of the brain without and with contrast enhancement. Jazmin Tuttle APRN-MEMORIAL MARKER DESIGNER Neurosurgery Nurse Practitioner [facility] Follow Up: Return for review of MRI. documented in this encounter [facility] 02-28-2022 Note Patient Outreach (NS CAMN) FER KAUR ([id number]) 1955 F Date Time Provider Department 02/28/22 ELISE SHEPHERD [facility] During your visit today, we recorded the following information about you: Elise Shepherd PA-C 02/28/2022 7:29 AM Signed Actionable Finding: CT Brain completed 02/09/22 demonstrates IMPRESSION: Resolution of mild hemorrhage over the left lateral frontal convexity. No new intracranial findings. Stable 1 cm mildly hyperdense lesion in the left cerebellar hemisphere, which may represent cavernous malformation. MR brain without with contrast may be considered for further evaluation. Follow up MRI brain scheduled 03/09/22 as recommended. Actionable Finding addressed. Elise Shepherd PA-C Allergies As of Date: 02/28/2022 Noted Allergy Reaction SEASONAL ALLERGIES 11/27/2013 14 - Other: See Comments Date Reviewed: 02/09/2022 Reviewed by: Jazmin Tuttle APRN.CNP - Fully Assessed Prescriptions as of 02/28/2022 - Magnesium 250 mg tab Take 1 tablet by mouth once daily. - PHYTONADIONE (VITAMIN K) 100 mcg tablet Take 100 mcg by mouth once daily. - Cholecalciferol, Vitamin D3, 1,000 unit cap Take 1 capsule by mouth once daily. Meds Comments as of 11/27/2013: Oil of Oregano Problem List As Of Date 02/28/2022 Noted Resolved MALIGN NEOPL BREAST NOS [C50.919] 09/06/2004 BONE AND CARTILAGE DIS NOS [M89.9, M94.9] BENIGN HYPERTENSION [I10] IDIOPATHIC GUTTATE HYPOMELANOSIS: DYSCHROMIA [*09/04/2008 INTRADERMAL NEVUS MOLE///BENIGN BEAN SKIN LEG [D*09/04/2008 XEROSIS//SEBACEOUS GLAND DIS NEC: HANDS [L73.8] 09/04/2008 S/P: DERMATITIS NOS OF HANDS: NOW CLEARED UP [*09/04/2008 SOLAR LENTIGENES///DYSCHROMIA OTHER [L81.9] 09/04/2008 ACTINIC DAMAGE///CHR SOLAR SKIN DAMAGE NOS [L57*09/04/2008 SEBORRHEIC KERATOSIS NOS [L82.1] 09/04/2008 NEVOCELLULAR NEVI MOLES///BENIGN BEAN SKIN TRUNK*09/04/2008 Urinary Disorder [N39.9] 09/29/2008 Plantar Fascial Fibromatosis [M72.2] 01/30/2009 Hyperparathyroidism due to vitamin D deficiency*12/13/2010 Vitamin D deficiency [E55.9] 12/13/2010 Anxiety [F41.9] 10/04/2011 Microscopic hematuria [R31.29] 05/03/2012 History of benign parathyroid tumor [Z86.018] 11/27/2013 Postmenopausal osteoporosis [M81.0] 12/05/2013 HX: breast cancer [Z85.3] 12/16/2014 Osteoporosis [M81.0] 01/19/2016 Traumatic subarachnoid hemorrhage with unknown *01/23/2022 Fall [W19.XXXA] 01/23/2022 Acute alcoholic intoxication without complicati*01/23/2022 Encounter Status:Closed by ELISE SHEPHERD on 02/28/22 [facility] 02-28-2022 Note HNO ID: [id number] Author: Elise Shepherd PA-C Service: ? Author Type: Physician Health Analytics Consultant Type: Progress Notes Filed: 02/28/2022 7:29 AM Note Text: Actionable Finding: CT Brain completed 02/09/22 demonstrates IMPRESSION: Resolution of mild hemorrhage over the left lateral frontal convexity. No new intracranial findings. Stable 1 cm mildly hyperdense lesion in the left cerebellar hemisphere, which may represent cavernous malformation. MR brain without with contrast may be considered for further evaluation. Follow up MRI brain scheduled 03/09/22 as recommended. Actionable Finding addressed. Elise Shepherd PA-C [facility] 02-28-2022 History of Presen t illness Narrative Actionable Finding: CT Brain completed 02/09/22 demonstrates IMPRESSION: Resolution of mild hemorrhage over the left lateral frontal convexity. No new intracranial findings. Stable 1 cm mildly hyperdense lesion in the left cerebellar hemisphere, which may represent cavernous malformation. MR brain without with contrast may be considered for further evaluation. Follow up MRI brain scheduled 03/09/22 as recommended. Actionable Finding addressed. Elise Shepherd PA-C documented in this encounter [facility] 02-16-2022 Miscellaneous Notes I spoke to the patient. She would like to spoke with NSG at her appointment next week before scheduling this eval. Thank you, Chandler @ [facility] [employer] documented in this encounter [facility] 02-09-2022 Note HNO ID: [id number] Author: Jazmin Tuttle APRN.CNP Service: ? Author Type: Nurse Practitioner Type: Progress Notes Filed: 02/09/2022 12:40 PM Note Text: NEUROSURGERY FOLLOW UP OFFICE NOTE Jazmin Tuttle APRN.CNP Date of visit: February 09, 2022 Patient Name: Ms.Rhonda Addison Kaur Date of : 1955 Current Age: [age] year old Sex: female MRN/E# [id number] Last Office Visit: Hospital follow up Chief Complaint: Patient presents with: New Patient: Hospital discharge The patient presents as a hospital follow up with imaging (CT B) for evaluation. This is a 66 year old female with a PMHx of HTN, anxiety that was seen in consult on 01/23/[address] Perez at [facility]. Patient was reportedly drunk and had a mechanical ground level fall and presented to an outside hospital. Imaging demonstrated a trace subarachnoid hemorrhage along left frontal and left cerebellum without signs of midline shift prompting transfer to [facility]. Repeat imaging remained stable and no surgical intervention was indicated. She was discharged home with recommendation to follow up in [address] brain prompting her visit today. Since discharge she states she is overall doing well. She denies any significant headaches but reports discomfort around the left ear. States that she will have occasional tinnitus and a feeling of fullness but denies any drainage. She denies visual changes, speech deficits, seizure activity, motor or sensory deficits. She presents for image review, evaluation and plan of care. 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 due to vitamin D deficiency (HCC) 12/13/2010 Internal hemorrhoids without mention of complication Malignant neoplasm of breast (female), unspecified site 03-16 Breast cancer Microscopic hematuria 05/03/2012 Osteopenia 12/13/2010 Postmenopausal osteoporosis 12/05/2013 Vitamin D deficiency 12/13/2010 PAST SURGICAL HISTORY Procedure Laterality Date APPENDECTOMY COLONOSCOPY FLX DX W/COLLJ SPEC WHEN PFRMD 04/27/07 MASTEC,MOD RADICAL 04-19-00 lt breast, with chemo tx PARATHYROIDECTOMY/EXPLORATION PARATHYROIDS 2011 benign parathyroid tumor 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 0 PHYTONADIONE (VITAMIN K) 100 mcg tablet Take 100 mcg by mouth once daily. 0 Cholecalciferol, Vitamin D3, 1,000 unit cap Take 1 capsule by mouth once daily. 0 No current facility-administered medications for this visit. REVIEW OF SYSTEMS Review of Systems Constitutional: Negative for chills, diaphoresis (Negative for night sweats.) and fever. HENT: Positive for ear pain. Negative for ear discharge and rhinorrhea. Eyes: Negative for discharge. Respiratory: Negative for cough, shortness of breath and wheezing. Cardiovascular: Negative for chest pain, palpitations and leg swelling. Gastrointestinal: Negative for constipation, diarrhea, nausea and vomiting. Endocrine: Negative for cold intolerance and heat intolerance. Genitourinary: Negative for frequency. Negative for urinary incontinence and urinary retention. Musculoskeletal: Negative for back pain, joint swelling, myalgias and neck pain. Skin: Negative for rash (Negative for hives and skin lesions.). Allergic/Immunologic: Negative for environmental allergies and food allergies. Negative for contact allergy, seasonal allergies. Neurological: Negative for dizziness, seizures, syncope, weakness, light-headedness, numbness (Negative for numbness in extremities.) and headaches. Hematological: Does not bruise/bleed easily. Psychiatric/Behavioral: The patient is not nervous/anxious. Negative for depression. OBJECTIVE: BP 145/80 Pulse 78 Ht 5' 8 (1.73m) Wt 128 lb (58.1kg) SpO2 99% BMI 19.47 kg/(m2). PHYSICAL EXAM: Mental State : Alert, memory function unremarkable. Attention span and concentration normal for patient's age. Speech normal, no rece (more content not included)... [facility] 02-09-2022 History of Presen t illness Narrative NEUROSURGERY FOLLOW UP OFFICE NOTE Jazmin Tuttle APRN.CNP Date of visit: February 09, 2022 Patient Name: Ms.Rhonda Addison Kaur Date of : 1955 Current Age: [age] year old Sex: female MRN/E# [id number] Last Office Visit: Hospital follow up Chief Complaint: Patient presents with: New Patient: Hospital discharge The patient presents as a hospital follow up with imaging (CT B) for evaluation. This is a 66 year old female with a PMHx of HTN, anxiety that was seen in consult on 01/23/[address] Perez at [facility]. Patient was reportedly drunk and had a mechanical ground level fall and presented to an outside hospital. Imaging demonstrated a trace subarachnoid hemorrhage along left frontal and left cerebellum without signs of midline shift prompting transfer to [facility]. Repeat imaging remained stable and no surgical intervention was indicated. She was discharged home with recommendation to follow up in [address] brain prompting her visit today. Since discharge she states she is overall doing well. She denies any significant headaches but reports discomfort around the left ear. States that she will have occasional tinnitus and a feeling of fullness but denies any drainage. She denies visual changes, speech deficits, seizure activity, motor or sensory deficits. She presents for image review, evaluation and plan of care. 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 Hyperparathyroidism due to vitamin D deficiency (HCC) 12/13/2010 Internal hemorrhoids without mention of complication Malignant neoplasm of breast (female), unspecified site 2- Breast cancer Microscopic hematuria 05/03/2012 Osteopenia 12/13/2010 Postmenopausal osteoporosis 12/05/2013 Vitamin D deficiency 12/13/2010 PAST SURGICAL HISTORY Procedure Laterality Date APPENDECTOMY COLONOSCOPY FLX DX W/COLLJ SPEC WHEN PFRMD 04/27/07 MASTEC,MOD RADICAL 04-19-00 lt breast, with chemo tx PARATHYROIDECTOMY/EXPLORATION PARATHYROIDS 2011 benign parathyroid tumor 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 0 PHYTONADIONE (VITAMIN K) 100 mcg tablet Take 100 mcg by mouth once daily. 0 Cholecalciferol, Vitamin D3, 1,000 unit cap Take 1 capsule by mouth once daily. 0 No current facility-administered medications for this visit. REVIEW OF SYSTEMS Review of Systems Constitutional: Negative for chills, diaphoresis (Negative for night sweats.) and fever. HENT: Positive for ear pain. Negative for ear discharge and rhinorrhea. Eyes: Negative for discharge. Respiratory: Negative for cough, shortness of breath and wheezing. Cardiovascular: Negative for chest pain, palpitations and leg swelling. Gastrointestinal: Negative for constipation, diarrhea, nausea and vomiting. Endocrine: Negative for cold intolerance and heat intolerance. Genitourinary: Negative for frequency. Negative for urinary incontinence and urinary retention. Musculoskeletal: Negative for back pain, joint swelling, myalgias and neck pain. Skin: Negative for rash (Negative for hives and skin lesions.). Allergic/Immunologic: Negative for environmental allergies and food allergies. Negative for contact allergy, seasonal allergies. Neurological: Negative for dizziness, seizures, syncope, weakness, light-headedness, numbness (Negative for numbness in extremities.) and headaches. Hematological: Does not bruise/bleed easily. Psychiatric/Behavioral: The patient is not nervous/anxious. Negative for depression. OBJECTIVE: BP 145/80 Pulse 78 Ht 5' 8 (1.73m) Wt 128 lb (58.1kg) SpO2 99% BMI 19.47 kg/(m^2). PHYSICAL EXAM: Mental State : Alert, memory function unremarkable. Attention span and concentration normal for patient's age. Speech normal, no receptive or expressive speech deficit. Recent and remote memory normal. Orientation : Oriented to person, place and time. Higher Cortical Function : Intact speech and language. Spontaneous speech and comprehension normal. Fund of knowledge intact for pt level of education. Cranial Nerves : II: No visual field cut no blurring, Makes and sustains eye contact III, IV, : Normal, no double vision or drooping. Pupils equal and reactive to light. Extraocular muscles intact. No nystagmus V: Normal sensation on the face, normal jaw movements VII: No paresis on either side VIII: No gross hearing deficit IX: Good and equal shoulder shrugs XII: Tongue midline, no fasciculations Sensory: Normal Sensation in upper and lower extremities and trunk to touch and noxious stimuli. Motor: Normal muscle tone and bulk. No tremor or uncontrollable movements. No spasticity or tremor. Strength: Upper Extremities : R L Deltoid 5/5 5/5 Biceps 5/5 5/5 Triceps 5/5 5/5 Wrist Ext 5/5 5/5 Wrist Flx 5/5 5/5 Hand Int 5/5 5/5 Lower Extremities : Hip Flexors 5/5 5/5 Hip Extensors 5/5 5/5 Hip Abductors 5/5 5/5 Straight leg Neg Neg Ankle dorsiflex 5/5 5/5 Ankle Plantar 5/5 5/5 Heel Walking intact intact Toe Walking intact intact Reflexes : Biceps 2+ 2+ Triceps 2+ 2+ Wrist 2+ 2+ Patellar 2+ 2+ Achilles 2+ 2+ Loza's Neg Neg Tinel's Neg Neg Phalen's Neg Neg Cerebellar Function : Normal finger to nose. Normal rapid alternating movements. No ataxia. Negative Romberg. Gait and Station: Normal gait. No assistive device usage. Pulmonary: Lungs without cough, audible wheeze. Respirations unlabored. Cardiac: Regular rate and rhythm. No murmer, gallop or rub. Data Review IMAGING STUDIES: CT brain WO IVCON performed today 02/09/22 demonstrates: Subarachnoid hemorrhage in the left frontal lobe and left cerebellum evolving. No new acute hemorrhage noted. Await final radiology read. Personal review of medical records: I reviewed with the patient, history, physical exam, the images and the chart. ASSESSMENT/PLAN: (S06.6XAD) Traumatic subarachnoid hemorrhage with unknown loss of consciousness status, subsequent encounter (primary encounter diagnosis) Comment: This is a very pleasant 66-year-old female who presents as a hospital follow-up with CT brain. She reports that she is overall doing well and denies any significant headache, dizziness, seizure activity or weakness. She reports discomfort in the left ear with a feeling of fullness. Neurologically she is intact on exam without focal deficit. I evaluated the left ear which shows a healing laceration. There is no drainage from the left ear and no injury to the canal that I can see. She has a follow-up visit with a new PCP tomorrow and will address this with her. CT brain was reviewed and shows that the 2 areas of acute subarachnoid hemorrhage are evolving however they are still visible. I told her she should follow-up in [address] brain. She should hold all aspirin and NSAIDs until her next visit. She may take Tylenol if needed. Additionally I would like her to follow-up with the TBI clinic for evaluation and management if indicated. All of her questions and concerns were addressed in detail. Plan: CT BRAIN WO IVCON Jazmin Tuttle APRN-MEMORIAL MARKER DESIGNER Neurosurgery Nurse Practitioner [facility] Follow Up: Return in about 2 weeks (around 02/23/2022) for review of CT brain. documented in this encounter [facility] 02-09-2022 Miscellaneous Notes You saw this patient yesterday and were awaiting the final read! There was incidental finding of Stable 1 cm mildly hyperdense lesion in the left cerebellar hemisphere, which may represent cavernous malformation. MR brain without with contrast may be considered for further evaluation. Wanted to make you aware as the read did not directly go to you! documented in this encounter [facility] Evaluation + Plan note Future Appointments Appointment Date:03/11/2021 11:30:00 AM Scheduled Provider:BLAKE DOMINGUEZ DO Location:[facility] Appointment Type: OV Future Scheduled TestsThyroid Stimulating Hormone 12/23/20Lipid Profile 12/23/20Complete Metabolic Panel 12/23/20BD Bone Density DEXA Axial Skeleton 12/09/20MA Mammo Screening Right w/ Javier 03/06/20 [facility] Evaluation note No assessment inform ation available [facility] Work Phone: Evaluation note Diagnosis Injury of head, subsequent encounter- Primary [facility] Diagnosis Traumatic subarachnoid hemorrhage with unknown loss of consciousness status, subsequent encounter- Primary [facility] Diagnosis Injury of head, subsequent encounter [facility]* Diagnosis Traumatic subarachnoid hemorrhage with unknown loss of consciousness status, subsequent encounter- Primary 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 [facility]* Diagnosis Traumatic subarachnoid hemorrhage with unknown loss of consciousness status, subsequent encounter [facility]* Diagnosis Brain mass Unspecified condition of brain documented in this encounter [facility] course Narrative No data available for this section [facility] Discharge instructions No data available for this section [facility] Progress note No data available for this section [facility] Reason for referral (narrative)No reason for referral information available[facility] Work Phone: Summary Purpose Family History No Family History Records Found Relationship Condition Age at Onset Recorded Date/T mina mother Hypertension Unknown father Hypertension Unknown Atrophic emphysema Unknown grandfather Malignant neoplasm Unknown Advance Directives No Advanced Directives Records Found Advance Directive Response Recorded Date/ Time Living Will No January 22 11:26pm Power of Security Public Safety Officer No January 22, 2022 11:26pm Chief Complaint and Reason for Visit Chief Complaint head injury Reason for Referral Specialty Diagnoses / Procedures Referred By Contac t Referred To Contact MR IMAGING Diagnoses Brain mass Procedures MRI BRAIN WO/W IVCON MRI BRAIN BRAIN STEM W/O W/CONTRAST MATERIAL Marti Perez PA-C [address] [place] [address] Mr Imaging Referral ID Status Reason Start Date Expiration Date V isits Requested Visits Authorized [id number] Closed Auto-Generate d Referral 01/23/2022 02/22/2023 1 1 Specialty Diagnoses / Procedures Referred By Contac t Referred To Contact CT IMAGING Diagnoses Traumatic subarachnoid hemorrhage with unknown loss of consciousness status, subsequent encounter Procedures CT BRAIN WO IVCON CT HEAD/BRAIN W/O CONTRAST MATERIAL Jazmin Tuttle APRN.MEMORIAL MARKER DESIGNER [address] [place] [address] Ct Imaging Referral ID Status Reason Start Date Expiration Date Visits Requested Visits Authorized [id number] Authorized Auto-Generat ed Referral 2 03/11/2023 1 1 Specialty Diagnoses / Procedures Referred By Contac t Referred To Contact CT IMAGING Diagnoses Injury of head, subsequent encounter Procedures CT BRAIN WO IVCON CT HEAD/BRAIN W/O CONTRAST MATERIAL Carli Perez I, MD [address] [facility] [place] [address] Ct Imaging Referral ID Status Reason Start Date Expiration Date Visits Requested Visits Authorized [id number] Authorized Auto-Generat ed Referral 2 02/27/2023 1 1 Additional Source Comments INFORMATION SOURCE (unrecogn ized section and content) DATE CREATED AUTHOR 12/06/2018 [facility] Agnieszka jose miguel Phillips DATE CREATED AUTHOR AUTHOR'S ORGANIZ ATION 11/14/2019 [facility] DATE CREATED AUTHOR AUTHOR'S ORGANIZ ATION 2020 [facility] DATE CREATED AUTHOR AUTHOR'S ORGANIZ ATION 02/28/2022 [facility] DATE CREATED AUTHOR AUTHOR'S ORGANIZ ATION 04/14/2022 [facility] DATE CREATED AUTHOR AUTHOR'S ORGANIZ ATION 02/21/2023 [facility] ([place]) DATE CREATED AUTHOR AUTHOR'S ORGANIZ ATION 08/13/2024 [facility] Goals (unrecognized section and content) Goals may be documented in a n alternate section Source Comments (unrecognize d section and content) In the event this informatio n is protected by the Federal Confidentiality of Alcohol and Drug Abuse Patient Records regulations: The Federal rules restrict any use of the information to criminally investigate or prosecute any alcohol or drug abuse patient.[facility] the event this information is protected by the Federal Confidentiality of Alcohol and Drug Abuse Patient Records regulations: The Federal rules restrict any use of the information to criminally investigate or prosecute any alcohol or drug abuse patient.[facility] Hospital[facility] the event this information is protected by the Federal Confidentiality of Alcohol and Drug Abuse Patient Records regulations: The Federal rules restrict any use of the information to criminally investigate or prosecute any alcohol or drug abuse patient.[facility] Hospital[facility] the event this information is protected by the Federal Confidentiality of Alcohol and Drug Abuse Patient Records regulations: The Federal rules restrict any use of the information to criminally investigate or prosecute any alcohol or drug abuse patient.[facility] Hospital[facility] the event this information is protected by the Federal Confidentiality of Alcohol and Drug Abuse Patient Records regulations: The Federal rules restrict any use of the information to criminally investigate or prosecute any alcohol or drug abuse patient.[facility] Hospital[facility] the event this information is protected by the Federal Confidentiality of Alcohol and Drug Abuse Patient Records regulations: The Federal rules restrict any use of the information to criminally investigate or prosecute any alcohol or drug abuse patient.[facility] HospitalIn the event this information is protected by the Federal Confidentiality of Alcohol and Drug Abuse Patient Records regulations: The Federal rules restrict any use of the information to criminally investigate or prosecute any alcohol or drug abuse patient.[facility] Hospital[facility] the event this information is protected by the Federal Confidentiality of Alcohol and Drug Abuse Patient Records regulations: The Federal rules restrict any use of the information to criminally investigate or prosecute any alcohol or drug abuse patient.[facility] Care Teams (unrecognized sec tion and content) Director Of Land Acquisition Relationship Specialty Start Date End Date Blake Dominguez, [place] [address] PCP - General Family Medicine 06/29/17 Director Of Land Acquisition Relationship Specialty Start Date End Date Blake Dominguez, [place] [address] PCP - General Family Medicine 06/29/17 Director Of Land Acquisition Relationship Specialty Start Date End Date Blake Dominguez, DO [address] [place] [id number] PCP - General Family Medicine 06/29/17 Director Of Land Acquisition Relationship Specialty Start Date End Date Blake Dominguez, DO [address] [place] [id number] PCP - General Family Medicine 06/29/17 Director Of Land Acquisition Relationship Specialty Start Date End Date AngelicaBobbyBlake M, DO [address] [place] [address] PCP - General Family Medicine 06/29/17 Director Of Land Acquisition Relationship Specialty Start Date End Date Blake Dominguez, DO [address] [place] [address] PCP - General Family Medicine 06/29/17 Director Of Land Acquisition Relationship Specialty Start Date End Date AngelicaBlake, DO [address] [place] [address] PCP - General Family Medicine 06/29/17 Director Of Land Acquisition Relationship Specialty Start Date End Date Blake Dominguez, DO [address] [place] [address] PCP - General Family Medicine 06/29/17 Team Status: Active Member Role/Relationship Status Mikey Mccoy MD Primary Care Provider Active Team Status: Inactive Member Role/Relationship Status Mikey Mccoy MD Primary Care Provider Active St art: August 07, 2024 End: August 07, 2024 Amrik Mccoy MD Attending Provider Active Start : August 07, 2024 End: August 07, 2024 Amrik Mccoy MD Referring Provider Active Start : August 07, 2024 End: August 07, 2024 Reason for Visit (unrecogniz ed section and content) Reason Comments New Patient Hospital discharge Specialty Diagnoses / Procedures Referred By Contac t Referred To Contact CT IMAGING Diagnoses Injury of head, subsequent encounter Procedures CT BRAIN WO IVCON CT HEAD/BRAIN W/O CONTRAST MATERIAL Carli Perez I, MD [address] [place] [address] Ct Imaging Referral ID Status Reason Start Date Expiration Date V isits Requested Visits Authorized [id number] Closed Auto-Generate d Referral 01/28/2022 02/27/2023 1 1 Reason Comments Appointment Reason Comments Established Patient Specialty Diagnoses / Procedures Referred By Contac t Referred To Contact CT IMAGING Diagnoses Traumatic subarachnoid hemorrhage with unknown loss of consciousness status, subsequent encounter Procedures CT BRAIN WO IVCON CT HEAD/BRAIN W/O CONTRAST MATERIAL Jazmin Tuttle APRN.MEMORIAL MARKER DESIGNER [address] [place] [address] Ct Imaging Referral ID Status Reason Start Date Expiration Date V isits Requested Visits Authorized [id number] Closed Auto-Generate d Referral 02/09/2022 03/11/2023 1 1 Specialty Diagnoses / Procedures Referred By Contac t Referred To Contact MR IMAGING Diagnoses Brain mass Procedures MRI BRAIN WO/W IVCON MRI BRAIN BRAIN STEM W/O W/CONTRAST MATERIAL Marti Perez, PADenisC [address] [place] [address] Mr Imaging Referral ID Status Reason Start Date Expiration Date V isits Requested Visits Authorized [id number] Closed Auto-Generate d Referral 01/23/2022 02/22/2023 1 1 FOR RECORDS PERTAINING TO PATIENTS WHO ARE OR HAVE BEEN ENROLLED IN A CHEMICAL DEPENDENCY/SUBSTANCEABUSE PROGRAM, SOME INFORMATION MAY BE OMITTED. This clinical summary was aggregated from multiple sources. Caution should be exercised in using it in the provision of clinical care. This summary normalizes information from multiple sources, and as a consequence, information in this document may materially change the coding, format and clinical context of patient data. In addition, data may be omitted in some cases. CLINICAL DECISIONS SHOULD BE BASED ON THE PRIMARY CLINICAL RECORDS. [facility] [employer] [facility]. provides no warranty or guarantee of the accuracy or completeness of information in this [id number]
[2025-02-10 10:41] LABS: Hematocrit 40.7 % (37-47); Hemoglobin 13.2 g/dL (12.0-15.0); Mean Corp Hgb Conc 32.4 g/dL (32-36); Mean Corpuscular Volume 90.8 fL (81-99); Mean Platelet Vol. 10.4 fl (6.2-12.0); Platelet Count 268 K/mm3 (150-450); RBC Distribution Width CV 12.7 % (11.6-14.6); RBC Distribution Width SD 42.2 fl (35.1-43.9); Red Blood Count 4.48 M/mm3 (4.2-5.4); White Blood Count 5.2 K/mm3 (4.4-11.0)
[2025-02-10 12:42] LABS: AST(SGOT) 23 U/L (<=31); Alanine Aminotransfer ALT/SGPT 11 U/L (<=34); Albumin, Serum 3.9 g/dL (3.4-4.8); Alkaline Phosphatase 65 U/L (35-104); Anion Gap 8 (7-18); BUN 15 mg/dL (4-19); BUN/Creat Ratio 21.2 RATIO (10-20); Calcium,Total 9.3 mg/dL (7.6-11.0); Carbon Dioxide 27.1 mmol/L (20.0-29.0); Chloride 104 mmol/L (96-106); Globulin 2.9 g/dL (2.2-4.2); Glucose 87 mg/dL (70-99); Potassium 4.0 mmol/L (3.5-5.1); Vitamin D,25 Hydroxy 30.0 ng/mL (30-100)
== END 2025-02-10 23:59 | disposition home or self-care (01) ==
LOC: MFPLAB 09:50
PROVIDERS: PCP Family Medicine; Visit Provider Family Medicine
DX: R53.83 Other fatigue (principal); C50.919 Malignant neoplasm of unspecified site of unspecified female breast; Z13.1 Encounter for screening for diabetes mellitus; Z78.0 Asymptomatic menopausal state
CPT/HCPCS: 36415; 80053; 82306; 84443; 85027